=== PATIENT | female | born 1955 | race Caucasian/White ===

== ENCOUNTER → 2018-08-15 | Outpatient (CLI) | payer BC ==
[2015-08-24 15:17] VITALS: BP 143/83
[~2018-08-15] MED LIST: HYDR12.58 PO; HYDR1POW19 MC; LISI10TA2 PO
--- NOTE | 2018-08-16 14:58 | RAD ---
DATE: 08/15/2018 EXAM: DIGITAL SCREEN BILAT W/CAD HISTORY: Routine screening COMPARISON: None available, baseline study This study was interpreted with the benefit of Computerized Aided Detection (CAD). Breast Density: SCATTERED The breast parenchyma shows scattered fibroglandular densities. Breast parenchyma level B. FINDINGS: There is a 9 mm, smooth nodule in the posterolateral aspect of the right breast. It demonstrates a lucent notch compatible with a fatty hilum of a lymph node. Slightly larger, similar densities are present in both axillae. No spiculated mass or architectural distortion is seen. Minimal benign type calcification is present. No suspicious microcalcifications are evident. IMPRESSION: Probably benign right intramammary lymph node. In the absence of previous mammograms to document stability, follow-up right mammography in 6 months and bilateral mammography at one year is suggested. BI-RADS CATEGORY: 3 PROBABLY BENIGN FINDING(S)-SHORT INTERVAL FOLLOW-UP SUGGESTED RECOMMENDED FOLLOW-UP: 6M 6 MONTH FOLLOW-UP PQRS compliance statement: Patient information was entered into a reminder system with a target due date for the next mammogram. Mammography is a sensitive method for finding small breast cancers, but it does not detect them all and is not a substitute for careful clinical examination. A negative mammogram does not negate a clinically suspicious finding and should not result in delay in biopsying a clinically suspicious abnormality. "Our facility is accredited by the [employer] Mammography [employer]."
== END | disposition home or self-care (01) ==
LOC: MAMMO 13:55
DX: Z12.31 Encounter for screening mammogram for malignant neoplasm of breast (principal)
CPT/HCPCS: 77067

== ENCOUNTER 2018-09-20 19:06 | Emergency (ER) | payer BC ==
[~2018-09-20] VITALS: Ht 144.8 cm; Wt 65.8 kg
[2018-09-20 19:30] VITALS: BP 145/91
--- NOTE | 2018-09-20 21:08 | PHYS DOC ---
Past Medical History Past Medical History: Arthritis, Hypertension, Other Additional Past Medical Histor: back pain Past Surgical History: Appendectomy, Hysterectomy, Tonsillectomy, Other Additional Past Surgical Histo: Right knee repair-no knee cap Alcohol Use: None Drug Use: None Adult General Chief Complaint Chief Complaint: FINGER INJURY HPI HPI Patient is a 63 year old female presenting with a finger problem. She says that she was using her hands all day today she was using her hands all day today drawing various things She said about 1 hour ago her affected finger middle finger turned white she noticed a bruise at the base of the finger she had a little bit of numbness there is came to the ER for evaluation. Before I saw the patient apparently in the triage area the white finger resolved completely and she says it is back to normal now. Of note about 3 weeks ago she did bump her right forearm and she has a small skin nodule there now laterally. That does not really hurt though Review of Systems Review of Systems Patient is no recent fever she denies any shortness of breath never had this before Allergies Allergies Allergies Coded Allergies Type Severity Reaction Last Updated Verified Tetanus Vaccines and Toxoid Allergy Intermediate 08/23/15 Yes Physical Exam Physical Exam Constitutional: Well developed, well nourished, no acute distress, non-toxic appearance. [] HENT: Normocephalic, atraumatic, bilateral external ears normal, oropharynx moist, no oral exudates, nose normal. [] Eyes: PERRLA, EOMI, conjunctiva normal, no discharge. [] Neck: Normal range of motion, no tenderness, supple, no stridor. [] Cardiovascular:Heart rate regular rhythm, no murmur [] Lungs & Thorax: Bilateral breath sounds clear to auscultation [] Abdomen: Bowel sounds normal, soft, no tenderness, no masses, no pulsatile masses. [] Skin: Warm, dry, no erythema, no rash. [] Back: No tenderness, no CVA tenderness. [] Extremities: There is intact capillary refill intact sensation all 10 fingers are warm and well perfused there are no Janeway lesions there are no splinter hemorrhages of the fingernails. There is a small area of ecchymosis on the palmar aspect just below the middle finger of the hand is nontender no nodular FEELING to it. sensation is intact. tendon function intact. there is a small subq nodule lateral forearm of the arm. radial pulse is intact. Neurologic: Alert and oriented X 3, normal motor function, normal sensory function, no focal deficits noted. [] Psychologic: Affect normal, judgement normal, mood normal. [] Current Patient Data Vital Signs Vital Signs Date Time Temp Pulse Resp B/P (MAP) Pulse Ox O2 Delivery O2 Flow Rate FiO2 09/20/18 19:30 97.7 80 14 145/91 (109) 97 Room Air 97.7 EKG EKG [] Radiology/Procedures Radiology/Procedures [] Course & Med Decision Making Course & Med Decision Making Pertinent Labs and Imaging studies reviewed. (See chart for details) []Transient hypoperfusion of the finger now resolved query raynauds. Circulatory exam of the hand is normal capillary refill radial pulse etc. there is a small contusion and low palmar aspect of the hand could be potentially some sort of a mild trauma from overuse she was using her hand regularly today Recommended rest ice gradual return to activity this could be a raynauds no distal lesions no murmur doubt endocarditis or central etiolgoy Isaac Disclaimer Isaac Disclaimer This electronic medical record was generated, in whole or in part, using a voice recognition dictation system. Departure Departure Impression: Primary Impression: Ecchymosis Disposition: 01 HOME, SELF-CARE Condition: STABLE Patient Instructions: Contusion, [id number] JENNIFER RIZO MD Sep 20, 2018 21:08
== END 2018-09-20 20:16 | disposition home or self-care (01) ==
LOC: ER 19:06
DX: S60.221A Contusion of right hand, initial encounter (principal); M19.90 Unspecified osteoarthritis, unspecified site; I10 Essential (primary) hypertension; Z90.89 Acquired absence of other organs; Z90.710 Acquired absence of both cervix and uterus; Z88.7 Allergy status to serum and vaccine; X58.XXXA Exposure to other specified factors, initial encounter; Y93.89 Activity, other specified; Y92.89 Other specified places as the place of occurrence of the external cause; Y99.8 Other external cause status
CPT/HCPCS: 99281

== ENCOUNTER → 2019-02-12 | Outpatient (CLI) | payer BC ==
--- NOTE | 2019-02-12 13:06 | RAD ---
DATE: 02/12/2019 EXAM: DIGITAL DIAGNOSTIC RT HISTORY: Abnormal mammogram COMPARISON: 08/15/2018 mammogram This study was interpreted with the benefit of Computerized Aided Detection (CAD). Breast Density: SCATTERED The breast parenchyma shows scattered fibroglandular densities. Breast parenchyma level B. FINDINGS: No change in the right upper breast mass which may represent intramammary lymph node is identified. No suspicious calcification in the interval. No new mass on the mediolateral oblique view and spot compression images provided. IMPRESSION: Right upper-outer breast mass which has the appearance of an intramammary lymph node. Assessment for stability at the time of annual screening is recommended. BI-RADS CATEGORY: 3 PROBABLY BENIGN FINDING(S)-SHORT INTERVAL FOLLOW-UP SUGGESTED RECOMMENDED FOLLOW-UP: 6M 6 MONTH FOLLOW-UP PQRS compliance statement: Patient information was entered into a reminder system with a target due date in 6 months for the time of annual screening for the next mammogram. Mammography is a sensitive method for finding small breast cancers, but it does not detect them all and is not a substitute for careful clinical examination. A negative mammogram does not negate a clinically suspicious finding and should not result in delay in biopsying a clinically suspicious abnormality. "Our facility is accredited by the [employer] Mammography [employer]."
== END | disposition home or self-care (01) ==
LOC: MAMMO 12:23
PROVIDERS: ATTEND Registered Nurse
DX: N63.11 Unspecified lump in the right breast, upper outer quadrant (principal)
CPT/HCPCS: 77065

== ENCOUNTER → 2019-08-19 | Outpatient (CLI) | payer BC ==
--- NOTE | 2019-08-19 15:57 | RAD ---
Reason for Exam: 6 MONTH FOLLOW UP EXAM: DIGITAL DIAGNOSTIC BILATERAL. HISTORY: Right breast diagnostic with left breast screening mammograms. COMPARISON: February 12, 2019. This study was interpreted with the benefit of Computerized Aided Detection (CAD). FINDINGS: Breast Density: SCATTERED The breast parenchyma shows scattered fibroglandular densities. Breast parenchyma level B.. Right breast upper outer mass with central fat compatible with intramammary lymph node, unchanged compared to prior. No new suspicious microcalcification mass or architectural distortion. IMPRESSION: Right breast intramammary lymph node. BI-RADS CATEGORY: BI-RADS Category 2: Benign finding(s). RECOMMENDED FOLLOW-UP: 12M 12 MONTH FOLLOW-UP. PQRS compliance statement: Patient information was entered into a reminder system. Mammography is a sensitive method for finding small breast cancers, but it does not detect them all and is not a substitute for careful clinical examination. A negative mammogram does not negate a clinically suspicious finding and should not result in delay in biopsying a clinically suspicious abnormality. "Our facility is accredited by the [employer] Mammography [employer]." Dictated by: Dictated Date/Time: Signed by: CAMERON QUIROS Date/Time: 08/19/2019 1:55 PM LEANDRA
== END | disposition home or self-care (01) ==
LOC: MAMMO 12:35
PROVIDERS: ATTEND Registered Nurse
DX: R92.8 Other abnormal and inconclusive findings on diagnostic imaging of breast (principal)
CPT/HCPCS: 77066

== ENCOUNTER 2019-10-18 20:02 | Inpatient (IN) | payer BC ==
[~2019-10-18] VITALS: Ht 144.8 cm; Wt 68.2 kg
[2019-10-18 21:07] LABS: INFLUENZA A PATIENT NEGATIVE (NEGATIVE); INFLUENZA B PATIENT NEGATIVE (NEGATIVE)
[2019-10-18 23:48] LABS: BASO # 0.2 x10^3/uL (0.0-0.2); BASO % 1 % (0-3); EOS % 0 % (0-3); HEMATOCRIT 44.3 % (36.0-47.0); HEMOGLOBIN 14.8 g/dL (12.0-15.5); LYMPH # 0.5 x10^3/uL (1.0-4.8); LYMPH % 2 % (24-48); MEAN CORPUSCULAR HEMOGLOBIN 28 pg (25-35); MEAN CORPUSCULAR HGB CONC 33 g/dL (31-37); MEAN CORPUSCULAR VOLUME 83 fL (79-100); MONO # 1.3 x10^3/uL (0.0-1.1); MONO % 5 % (0-9); NEUT # 24.9 x10^3/uL (1.8-7.7); NEUT % 93 % (31-73); PLATELET COUNT 331 x10^3/uL (140-400); RED BLOOD COUNT 5.33 x10^6/uL (3.50-5.40); WHITE BLOOD COUNT 26.9 x10^3/uL (4.0-11.0)
[2019-10-19 00:04] LABS: ALBUMIN 3.2 g/dL (3.4-5.0); ALBUMIN/GLOBULIN RATIO 0.8 (1.0-1.7); CALCIUM 8.6 mg/dL (8.5-10.1); GFR 55.5; TOTAL BILIRUBIN 0.6 mg/dL (0.2-1.0); TOTAL PROTEIN 7.2 g/dL (6.4-8.2)
[2019-10-19 00:05] LABS: POTASSIUM 2.7 mmol/L (3.5-5.1)
--- NOTE | 2019-10-19 00:09 | PHYS DOC ---
Past Medical History Past Medical History: Arthritis, Hypertension, Other Additional Past Medical Histor: back pain (LETTY FRANKLIN APRN) Past Surgical History: Appendectomy, Hysterectomy, Tonsillectomy, Other Additional Past Surgical Histo: Right knee repair-no knee cap (LETTY FRANKLIN APRN) Alcohol Use: None Drug Use: None (LETTY FRANKLIN APRN) Attending Signature I have participated in the care of this patient and I have reviewed and agree with all pertinent clinical information above including history, exam, and recommendations. (GONZALEZ CHERRY MD) Adult General Chief Complaint Chief Complaint: FLU SYMPTOM HPI HPI Patient is a 64 year old female who presents with cough, malaise. Reports over the last 3 weeks she has been feeling ill, states she has been a little bit worse each day. States she had gone to her primary care provider is ago, had been started on Cefdinir, states over the last 24 hours she started to feel worse. Reports she has had a fever, cough, denies sore throat, denies any chest pain, denies dizziness. (LETTY FRANKLIN APRN) Review of Systems Review of Systems Constitutional: Reports fever, chills, malaise[] Eyes: Denies change in visual acuity, redness, or eye pain [] HENT: Reports nasal congestion, occasional sore throat.[] Respiratory: Reports cough, shortness of breath[] Cardiovascular: No additional information not addressed in HPI [] GI: Denies abdominal pain, nausea, vomiting, bloody stools or diarrhea [] : Denies dysuria or hematuria [] Musculoskeletal: Denies back pain or joint pain reports generalized body aches [] Integument: Denies rash or skin lesions [] Neurologic: Reports occasional headache denies focal weakness or sensory changes [] Endocrine: Denies polyuria or polydipsia [] All other systems were reviewed and found to be within normal limits, except as documented in this note. (LETTY FRANKLIN APRN) Current Medications Current Medications Current Medications Medications (Trade) Dose Ordered Sig/David Start Time Stop Time Status Last Admin Dose Admin Acetaminophen (Tylenol) 650 mg 1X ONCE 10/19/19 00:30 10/19/19 00:31 DC 10/19/19 00:56 650 MG Levofloxacin/ Dextrose 150 ml @ 100 mls/hr 1X ONCE 10/19/19 00:30 10/19/19 01:59 DC 10/19/19 01:01 100 MLS/HR Potassium Chloride (Klor-Con) 40 meq 1X ONCE 10/19/19 00:30 10/19/19 00:31 DC 10/19/19 00:56 40 MEQ Sodium Chloride 1,000 ml @ 1,000 mls/hr 1X ONCE 10/19/19 00:30 10/19/19 01:29 DC 10/19/19 01:02 1,000 MLS/HR (GONZALEZ CHERRY MD) Allergies Allergies Allergies Coded Allergies Type Severity Reaction Last Updated Verified Tetanus Vaccines and Toxoid Allergy Intermediate 08/23/15 Yes (GONZALEZ CHERRY MD) Physical Exam Physical Exam Constitutional: Well developed, well nourished, appears ill, appears uncomfortable. [] HENT: Normocephalic, atraumatic, bilateral external ears normal, oropharynx moist, no oral exudates, nose normal. [] Eyes: PERRLA, EOMI, conjunctiva normal, no discharge. [] Neck: Normal range of motion, no tenderness, supple, no stridor. [] Cardiovascular: Tachycardic, no murmur [] Lungs & Thorax: Bilateral breath sounds clear to auscultation occasional cough noted[] Abdomen: Bowel sounds normal, soft, no tenderness, no masses, no pulsatile masses. [] Skin: Warm, dry, no erythema, no rash. [] Back: No tenderness, no CVA tenderness. [] Extremities: No tenderness, no cyanosis, no clubbing, ROM intact, no edema. [] Neurologic: Alert and oriented X 3, normal motor function, normal sensory function, no focal deficits noted. [] Psychologic: Affect normal, judgement normal, mood normal. [] (LETTY FRANKLIN APRN) Current Patient Data Vital Signs Vital Signs Date Time Temp Pulse Resp B/P (MAP) Pulse Ox O2 Delivery O2 Flow Rate FiO2 10/18/19 20:37 100.1 110 20 115/74 (88) 97 Room Air 100.1 (GONZALEZ CHERRY MD) Lab Values Laboratory Tests Test 10/18/19 20:35 10/18/19 23:40 Influenza Type A Antigen Negative (NEGATIVE) Influenza Type B Antigen Negative (NEGATIVE) White Blood Count 26.9 x10^3/uL (4.0-11.0) H Red Blood Count 5.33 x10^6/uL (3.50-5.40) Hemoglobin 14.8 g/dL (12.0-15.5) Hematocrit 44.3 % (36.0-47.0) Mean Corpuscular Volume 83 fL (79-100) Mean Corpuscular Hemoglobin 28 pg (25-35) Mean Corpuscular Hemoglobin Concent 33 g/dL (31-37) Red Cell Distribution Width 14.0 % (11.5-14.5) Platelet Count 331 x10^3/uL (140-400) Neutrophils (%) (Auto) 93 % (31-73) H Lymphocytes (%) (Auto) 2 % (24-48) L Monocytes (%) (Auto) 5 % (0-9) Eosinophils (%) (Auto) 0 % (0-3) Basophils (%) (Auto) 1 % (0-3) Neutrophils # (Auto) 24.9 x10^3/uL (1.8-7.7) H Lymphocytes # (Auto) 0.5 x10^3/uL (1.0-4.8) L Monocytes # (Auto) 1.3 x10^3/uL (0.0-1.1) H Eosinophils # (Auto) 0.0 x10^3/uL (0.0-0.7) Basophils # (Auto) 0.2 x10^3/uL (0.0-0.2) Platelet Estimate Pending Sodium Level 125 mmol/L (136-145) L Potassium Level 2.7 mmol/L (3.5-5.1) *L Chloride Level 88 mmol/L (98-107) L Carbon Dioxide Level 28 mmol/L (21-32) Anion Gap 9 (6-14) Blood Urea Nitrogen 12 mg/dL (7-20) Creatinine 1.0 mg/dL (0.6-1.0) Estimated GFR (Cockcroft-Gault) 55.5 BUN/Creatinine Ratio 12 (6-20) Glucose Level 194 mg/dL (70-99) H Lactic Acid Level 3.5 mmol/L (0.4-2.0) H Calcium Level 8.6 mg/dL (8.5-10.1) Total Bilirubin 0.6 mg/dL (0.2-1.0) Aspartate Amino Transferase (AST) 14 U/L (15-37) L Alanine Aminotransferase (ALT) 17 U/L (14-59) Alkaline Phosphatase 100 U/L (46-116) Troponin I Quantitative < 0.017 ng/mL (0.000-0.055) Total Protein 7.2 g/dL (6.4-8.2) Albumin 3.2 g/dL (3.4-5.0) L Albumin/Globulin Ratio 0.8 (1.0-1.7) L Laboratory Tests 10/18/19 23:40 Laboratory Tests 10/18/19 23:40 (GONZALEZ CHERRY MD) EKG EKG [] (LETTY FRANKLIN APRN) Radiology/Procedures Radiology/Procedures Discussed with Dr Cherry, appears some haziness to left lower lobe consistent with mild pneumonia[] (LETTY FRANKLIN APRN) Course & Med Decision Making Course & Med Decision Making Pertinent Labs and Imaging studies reviewed. (See chart for details) [Reviewed imaging and lab work, patient does appear to not be improving after being on her feel tenderness, we'll change antibiotics, will plan for admission, will hydrate per sepsis protocol, the potassium to bring] within normal range.] Discussed admission with Dr Cherry, agrees to admission to hospitalist. Will treat per sepsis protocol, will change antibiotic from her PO Cefdinir to IV Le vaquin. Replace potassium with PO potassium at this time (LETTY FRANKLIN APRN) Dragon Disclaimer Dragon Disclaimer This electronic medical record was generated, in whole or in part, using a voice recognition dictation system. (LETTY FRANKLIN APRN) Departure Departure Impression: Primary Impression: Sepsis Additional Impression: Hypokalemia Disposition: ADMITTED INPATIENT Admitting Physician: [place] (LETTY FRANKLIN APRN) Condition: STABLE Referrals: KAY MENDOZA (PCP) Problem Qualifiers Primary Impression: Sepsis Sepsis type: sepsis due to unspecified organism Sepsis acute organ dysfunction status: without acute organ dysfunction Qualified Codes: A41.9 - Sepsis, unspecified organism LETTY FRANKLIN APRN Oct 19, 2019 00:09 GONZALEZ CHERRY MD Oct 19, 2019 02:40
[2019-10-19] MEDS ORDERED: ACETAMINOPHEN 325 MG TABLET. PO ONE (00:30)
[2019-10-19] MEDS ORDERED: IV NORMAL SALINE 1000ML BAG 1,000 ML IV ONE ×2 (00:30)
[2019-10-19] MEDS ORDERED: POTASSIUM CHLORIDE 20 MEQ TABLET.ER. PO ONE ×2 (00:30→11:30)
[2019-10-19] MEDS ORDERED: ONDANSETRON PF 4 MG/2 ML VIAL. IV PRN (01:15)
[2019-10-19] MEDS ORDERED: ACETAMINOPHEN 325 MG TABLET. PO PRN (01:15)
[2019-10-19] MEDS ORDERED: MORPHINE SULFATE 2 MG/ML VIAL. IV PRN (01:15)
[2019-10-19] MEDS: IPRATRPIUM/ALBUTEROL 0.5/2.5MG 3 ML NEBU. NEB SCH ×5 (01:16→21:49)
[2019-10-19 02:14] LABS: BILIRUBIN,URINE NEGATIVE (NEG); CLARITY,URINE CLOUDY; COLOR,URINE YELLOW; NITRITE,URINE NEGATIVE (NEG); PH,URINE 5.5; PROTEIN,URINE NEGATIVE (NEG-TRACE); UROBILINOGEN,URINE 0.2 mg/dL (0.2 mg/dL)
[2019-10-19 02:19] LABS: BACTERIA,URINE 0 /HPF (0-FEW); RBC,URINE 0 /HPF (0-2); SQUAMOUS EPITHELIAL CELL,UR MOD /LPF; WBC,URINE OCC /HPF (0-4)
[2019-10-19 02:30] VITALS: BP 161/84
[2019-10-19] MEDS ORDERED: LISI1TAB20 PO (02:35)
[2019-10-19] MEDS ORDERED: LEVO75TA5 PO (02:35)
[2019-10-19] MEDS ORDERED: CEFD300C PO (02:35)
[2019-10-19] MEDS: IV NORMAL SALINE 1000ML BAG 1,000 ML IV SCH ×3 (02:36→11:15)
[2019-10-19 04:03] LABS: % BANDS 5 % (0-9); % LYMPHS 2 % (24-48); % MONOS 2 % (0-10); % SEGS 91 % (35-66); PLT ESTIMATE ADEQUATE (ADEQUATE)
--- NOTE | 2019-10-19 04:21 | RAD ---
Exam: Chest one view INDICATION: Fever TECHNIQUE: Frontal view of the chest Comparisons: None FINDINGS: The cardiomediastinal silhouette and pulmonary vessels are within normal limits. The lung and pleural spaces are clear. IMPRESSION: No acute cardiopulmonary process. Electronically signed by: Whitney Antunez MD (10/19/2019 4:18 AM) [id number]
[2019-10-19 07:00] VITALS: BP 128/80
--- NOTE | 2019-10-19 08:00 | PDOC1 ---
History and Physical Date of Admission Date of Admission DATE: 10/19/19 TIME: 07:59 Identification/Chief Complaint Chief Complaint Weakness Source Source: Patient History of Present Illness History of Present Illness Ms Burch is a 64 year old female w/ PMHx OA, HTN, back pain who presents with cough, malaise. Reports over the last 3 weeks she has been feeling ill, states she has been a little bit worse each day. States she had gone to her primary care provider is ago, had been started on Cefdinir, states over the last 24 hours she started to feel worse. Reports she has had a fever, cough, denies sore throat, denies any chest pain, denies dizziness. Labs significant for WBC 26.9, Na 125, K 2.7, Glucose 194, Lactate 3.5. CXR with possible left lower lobe haziness. Started on empiric levaquin, changed from cefdinir, admitted for further care. Past Medical History Cardiovascular: HTN Pulmonary: No pertinent hx CENTRAL NERVOUS SYSTEM: Other GI: No pertinent hx Heme/Onc: No pertinent hx Hepatobiliary: No pertinent hx Psych: No pertinent hx Musculoskeletal: Osteoarthritis Rheumatologic: No pertinent hx Infectious disease: No pertinent hx Renal/: No pertinent hx Endocrine: No pertinent hx Past Surgical History Past Surgical History Appendectomy, Hysterectomy, Tonsillectomy, Right knee repair-no knee cap Past Surgical History: Appendectomy, Arthroscopy, Tonsillectomy Family History Family History: Coronary Artery Disease Social History Smoke: No ALCOHOL: none Drugs: None Current Medications Current Medications Current Medications Potassium Chloride (Klor-Con) 40 meq 1X ONCE PO Last administered on 10/19/19at 00:56; Start 10/19/19 at 00:30; Stop 10/19/19 at 00:31; Status DC Sodium Chloride 1,000 ml @ 1,000 mls/hr 1X ONCE IV Last administered on 10/19/19at 00:58; Start 10/19/19 at 00:30; Stop 10/19/19 at 01:29; Status DC Levofloxacin/ Dextrose 150 ml @ 100 mls/hr 1X ONCE IV Last administered on 10/19/19at 01:01; Start 10/19/19 at 00:30; Stop 10/19/19 at 01:59; Status DC Acetaminophen (Tylenol) 650 mg 1X ONCE PO Last administered on 10/19/19at 00:56; Start 10/19/19 at 00:30; Stop 10/19/19 at 00:31; Status DC Sodium Chloride 1,000 ml @ 1,000 mls/hr 1X ONCE IV Last administered on 10/19/19at 01:02; Start 10/19/19 at 00:30; Stop 10/19/19 at 01:29; Status DC Ondansetron HCl (Zofran) 4 mg PRN Q8HRS PRN IV NAUSEA/VOMITING; Start 10/19/19 at 01:15; Stop 10/20/19 at 01:14 Morphine Sulfate (Morphine Sulfate) 2 mg PRN Q2HR PRN IV PAIN; Start 10/19/19 at 01:15; Stop 10/20/19 at 01:14 Sodium Chloride 1,000 ml @ 200 mls/hr Q5H IV Last administered on 10/19/19at 06:15; Start 10/19/19 at 01:15; Stop 10/20/19 at 01:14 Acetaminophen (Tylenol) 650 mg PRN Q4HRS PRN PO FEVER; Start 10/19/19 at 01:15; Stop 10/20/19 at 01:14 Albuterol/ Ipratropium (Duoneb) 3 ml RTQID NEB Last administered on 10/19/19at 01:16; Start 10/19/19 at 08:00; Stop 10/20/19 at 07:59 Active Scripts Active Reported Cefdinir 300 Mg Capsule 1 Cap PO BID Levothyroxine Sodium 75 Mcg Tablet 1 Tab PO DAILY Lisinopril-Hctz 20-25 Mg Tab (Lisinopril/Hydrochlorothiazide) 1 Each Tablet 1 Tab PO DAILY Allergies Allergies: Coded Allergies: Tetanus Vaccines and Toxoid (Verified Allergy, Intermediate, 08/23/15) PATIENT RPTS INTERACTION ROS General: YES: Chills, Fatigue, Malaise; No: Night Sweats, Appetite, Other PSYCHOLOGICAL ROS: No: Anxiety, Behavioral Disorder, Concentration difficultie, Decreased libido, Depression, Disorientation, Hallucinations, Hostility, Irritablity, Memory difficulties, Mood Swings, Obsessive thoughts, Physical abuse, Sexual abuse, Sleep disturbances, Suicidal ideation, Other Eyes: No Blurry vision, No Decreased vision, No Double vision, No Dry eyes, No Excessive tearing, No Eye Pain, No Itchy Eyes, No Loss of vision, No Photophobia, No Scotomata, No Uses contacts, No Uses glasses, No Other HEENT: No: Heacaches, Visual Changes, Hearing change, Nasal congestion, Nasal discharge, Oral lesions, Sinus pain, Sore Throat, Epistaxis, Sneezing, Snoring, Tinnitus, Vertigo, Vocal changes, Other ALLERGY AND IMMUNOLOGY: No: Hives, Insect Bite Sensitivity, Itchy/Watery Eyes, Nasal Congestion, Post Nasal Drip, Seasonal Allergies, Other Hematological and Lymphatic: No: Bleeding Problems, Blood Clots, Blood Transfusions, Brusing, Night Sweats, Pallor, Swollen Lymph Nodes, Other ENDOCRINE: No: Breast Changes, Galactorrhea, Hair Pattern Changes, Hot Flashes, Malaise/lethargy, Mood Swings, Palpitations, Polydipsia/polyuria, Skin Changes, Temperature Intolerance, Unexpected Weight Changes, Other Breast: No New/Changing Breast Lumps, No Nipple changes, No Nipple discharge, No Other Respiratory: YES: Cough, Shortness of breath, SOB with excertion; No: Hemoptysis, Orthopnea, Pleuritic Pain, Sputum Changes, Stridor, Tachypnea, Wheezing, Other Cardiovascular: No Chest Pain, No Palpitations, No Orthopnea, No Paroxysmal Noc. Dyspnea, No Edema, No Lt Headedness, No Other Gastrointestinal: Yes Nausea; No Vomiting, No Abdominal Pain, No Diarrhea, No Constipation, No Melena, No Hematochezia, No Other Genitourinary: No Dysuria, No Frequency, No Incontinence, No Hematuria, No Retention, No Discharge, No Urgency, No Pain, No Flank Pain, No Other, No , No , No , No , No , No , No Musculoskeletal: Yes Gait Disturbance, Yes Muscular Weakness; No Joint Pain, No Joint Stiffness, No Joint Swelling, No Muscle Pain, No Pain In:, No Swelling In:, No Other Neurological: Yes Gait Disturbance; No Behavorial Changes, No Bowel/Bladder ControlChng, No Confusion, No D izziness, No Headaches, No Impaired Coord/balance, No Memory Loss, No Numbness/Tingling, No Seizures, No Speech Problems, No Tremors, No Visual Changes, No Weakness, No Other Skin: No Dry Skin, No Eczema, No Hair Changes, No Lumps, No Mole Changes, No Mottling, No Nail Changes, No Pruritus, No Rash, No Skin Lesion Changes, No Other, No Acne Physical Exam General: Alert, Oriented X3, Cooperative, No acute distress HEENT: Atraumatic, PERRLA, EOMI, Mucous membr. moist/pink Lungs: Other (Left sided rhonchi) Heart: S1S2, RRR, no thrills, no rubs Abdomen: Normal bowel sounds, Soft, No tenderness, No hepatosplenomegaly, No masses Extremities: No clubbing, No cyanosis, No edema, Normal pulses, No tenderness/swelling Skin: No rashes, No breakdown, No significant lesion Neuro: Normal speech, Strength at 5/5 X4 ext, Normal tone, Sensation intact, Cranial nerves 3-12 NL, Reflexes 2+ Psych/Mental Status: Mental status NL, Mood NL Vitals Vitals Vital Signs Date Time Temp Pulse Resp B/P (MAP) Pulse Ox O2 Delivery O2 Flow Rate FiO2 10/19/19 02:30 98.3 95 18 161/84 (109) 95 Room Air 98.3 Labs Labs Laboratory Tests Test 10/18/19 20:35 10/18/19 23:40 10/19/19 02:07 10/19/19 02:45 Influenza Type A Antigen Negative (NEGATIVE) Influenza Type B Antigen Negative (NEGATIVE) White Blood Count 26.9 x10^3/uL (4.0-11.0) Red Blood Count 5.33 x10^6/uL (3.50-5.40) Hemoglobin 14.8 g/dL (12.0-15.5) Hematocrit 44.3 % (36.0-47.0) Mean Corpuscular Volume 83 fL (79-100) Mean Corpuscular Hemoglobin 28 pg (25-35) Mean Corpuscular Hemoglobin Concent 33 g/dL (31-37) Red Cell Distribution Width 14.0 % (11.5-14.5) Platelet Count 331 x10^3/uL (140-400) Neutrophils (%) (Auto) 93 % (31-73) Lymphocytes (%) (Auto) 2 % (24-48) Monocytes (%) (Auto) 5 % (0-9) Eosinophils (%) (Auto) 0 % (0-3) Basophils (%) (Auto) 1 % (0-3) Neutrophils # (Auto) 24.9 x10^3/uL (1.8-7.7) Lymphocytes # (Auto) 0.5 x10^3/uL (1.0-4.8) Monocytes # (Auto) 1.3 x10^3/uL (0.0-1.1) Eosinophils # (Auto) 0.0 x10^3/uL (0.0-0.7) Basophils # (Auto) 0.2 x10^3/uL (0.0-0.2) Segmented Neutrophils % 91 % (35-66) Band Neutrophils % 5 % (0-9) Lymphocytes % 2 % (24-48) Monocytes % 2 % (0-10) Platelet Estimate Adequate (ADEQUATE) Sodium Level 125 mmol/L (136-145) Potassium Level 2.7 mmol/L (3.5-5.1) Chloride Level 88 mmol/L (98-107) Carbon Dioxide Level 28 mmol/L (21-32) Anion Gap 9 (6-14) Blood Urea Nitrogen 12 mg/dL (7-20) Creatinine 1.0 mg/dL (0.6-1.0) Estimated GFR (Cockcroft-Gault) 55.5 BUN/Creatinine Ratio 12 (6-20) Glucose Level 194 mg/dL (70-99) Lactic Acid Level 3.5 mmol/L (0.4-2.0) 3.2 mmol/L (0.4-2.0) Calcium Level 8.6 mg/dL (8.5-10.1) Total Bilirubin 0.6 mg/dL (0.2-1.0) Aspartate Amino Transf (AST/SGOT) 14 U/L (15-37) Alanine Aminotransferase (ALT/SGPT) 17 U/L (14-59) Alkaline Phosphatase 100 U/L (46-116) Troponin I Quantitative < 0.017 ng/mL (0.000-0.055) Total Protein 7.2 g/dL (6.4-8.2) Albumin 3.2 g/dL (3.4-5.0) Albumin/Globulin Ratio 0.8 (1.0-1.7) Urine Collection Type Unknown Urine Color Yellow Urine Clarity Cloudy Urine pH 5.5 Urine Specific [place] 1.010 Urine Protein Negative mg/dL (NEG-TRACE) Urine Glucose (UA) 100 mg/dL (NEG) Urine Ketones (Stick) Negative mg/dL (NEG) Urine Blood Negative (NEG) Urine Nitrite Negative (NEG) Urine Bilirubin Negative (NEG) Urine Urobilinogen Dipstick 0.2 mg/dL (0.2 mg/dL) Urine Leukocyte Esterase Negative (NEG) Urine RBC 0 /HPF (0-2) Urine WBC Occ /HPF (0-4) Urine Squamous Epithelial Cells Mod /LPF Urine Bacteria 0 /HPF (0-FEW) Urine Mucus Slight /LPF Laboratory Tests Test 10/18/19 20:35 10/18/19 23:40 10/19/19 02:07 10/19/19 02:45 Influenza Type A Antigen Negative (NEGATIVE) Influenza Type B Antigen Negative (NEGATIVE) White Blood Count 26.9 x10^3/uL (4.0-11.0) Red Blood Count 5.33 x10^6/uL (3.50-5.40) Hemoglobin 14.8 g/dL (12.0-15.5) Hematocrit 44.3 % (36.0-47.0) Mean Corpuscular Volume 83 fL (79-100) Mean Corpuscular Hemoglobin 28 pg (25-35) Mean Corpuscular Hemoglobin Concent 33 g/dL (31-37) Red Cell Distribution Width 14.0 % (11.5-14.5) Platelet Count 331 x10^3/uL (140-400) Neutrophils (%) (Auto) 93 % (31-73) Lymphocytes (%) (Auto) 2 % (24-48) Monocytes (%) (Auto) 5 % (0-9) Eosinophils (%) (Auto) 0 % (0-3) Basophils (%) (Auto) 1 % (0-3) Neutrophils # (Auto) 24.9 x10^3/uL (1.8-7.7) Lymphocytes # (Auto) 0.5 x10^3/uL (1.0-4.8) Monocytes # (Auto) 1.3 x10^3/uL (0.0-1.1) Eosinophils # (Auto) 0.0 x10^3/uL (0.0-0.7) Basophils # (Auto) 0.2 x10^3/uL (0.0-0.2) Segmented Neutrophils % 91 % (35-66) Band Neutrophils % 5 % (0-9) Lymphocytes % 2 % (24-48) Monocytes % 2 % (0-10) Platelet Estimate Adequate (ADEQUATE) Sodium Level 125 mmol/L (136-145) Potassium Level 2.7 mmol/L (3.5-5.1) Chloride Level 88 mmol/L (98-107) Carbon Dioxide Level 28 mmol/L (21-32) Anion Gap 9 (6-14) Blood Urea Nitrogen 12 mg/dL (7-20) Creatinine 1.0 mg/dL (0.6-1.0) Estimated GFR (Cockcroft-Gault) 55.5 BUN/Creatinine Ratio 12 (6-20) Glucose Level 194 mg/dL (70-99) Lactic Acid Level 3.5 mmol/L (0.4-2.0) 3.2 mmol/L (0.4-2.0) Calcium Level 8.6 mg/dL (8.5-10.1) Total Bilirubin 0.6 mg/dL (0.2-1.0) Aspartate Amino Transf (AST/SGOT) 14 U/L (15-37) Alanine Aminotransferase (ALT/SGPT) 17 U/L (14-59) Alkaline Phosphatase 100 U/L (46-116) Troponin I Quantitative < 0.017 ng/mL (0.000-0.055) Total Protein 7.2 g/dL (6.4-8.2) Albumin 3.2 g/dL (3.4-5.0) Albumin/Globulin Ratio 0.8 (1.0-1.7) Urine Collection Type Unknown Urine Color Yellow Urine Clarity Cloudy Urine pH 5.5 Urine Specific [place] 1.010 Urine Protein Negative mg/dL (NEG-TRACE) Urine Glucose (UA) 100 mg/dL (NEG) Urine Ketones (Stick) Negative mg/dL (NEG) Urine Blood Negative (NEG) Urine Nitrite Negative (NEG) Urine Bilirubin Negative (NEG) Urine Urobilinogen Dipstick 0.2 mg/dL (0.2 mg/dL) Urine Leukocyte Esterase Negative (NEG) Urine RBC 0 /HPF (0-2) Urine WBC Occ /HPF (0-4) Urine Squamous Epithelial Cells Mod /LPF Urine Bacteria 0 /HPF (0-FEW) Urine Mucus Slight /LPF VTE Prophylaxis Ordered VTE Prophylaxis Devices: Yes VTE Pharmacological Prophylaxi: Yes Assessment/Plan Assessment/Plan A/P: Cough - sinusitis + bronchitis vs pneumonia failed outpatient antibiotic therapy on cefdinir, will cont levaquin now. Sepsis - 2/2 above infection. Given fluids, trend lactate, given empiric antibiotics. Negative for inluenza Hypokalemia - with hypomagnesemia - likely from acute illness and concomitant diuretic use. Will hold thiazide Lactic acidosis - 2/2 sepsis. Will trend OA - tylenol for pain HTN - hold thiazide, continue lisinopril Hypothyroidism - cont levothyroxine Weakness - likely related to infection, eletrolytes, will have PT to see FEN - General diet PPX - lovenox FULL CODE Dispo - inpatient likely 2 midnights. GARCIA MANCERA MD Oct 19, 2019 08:00
[2019-10-19 09:23] LABS: BASO % 0 % (0-3); EOS % 0 % (0-3); HEMATOCRIT 38.2 % (36.0-47.0); HEMOGLOBIN 12.9 g/dL (12.0-15.5); LYMPH # 0.6 x10^3/uL (1.0-4.8); LYMPH % 3 % (24-48); MEAN CORPUSCULAR HEMOGLOBIN 28 pg (25-35); MEAN CORPUSCULAR HGB CONC 34 g/dL (31-37); MEAN CORPUSCULAR VOLUME 84 fL (79-100); MONO # 1.5 x10^3/uL (0.0-1.1); MONO % 7 % (0-9); NEUT # 20.3 x10^3/uL (1.8-7.7); NEUT % 91 % (31-73); PLATELET COUNT 279 x10^3/uL (140-400); RED BLOOD COUNT 4.56 x10^6/uL (3.50-5.40); RED CELL DISTRIBUTION WIDTH 13.8 % (11.5-14.5); WHITE BLOOD COUNT 22.4 x10^3/uL (4.0-11.0)
[2019-10-19 09:35] LABS: CALCIUM 7.1 mg/dL (8.5-10.1); CREATININE 0.7 mg/dL (0.6-1.0); GFR 83.7; POTASSIUM 3.1 mmol/L (3.5-5.1)
[2019-10-19 11:00] VITALS: BP 156/86
[2019-10-19 15:00] VITALS: BP 163/87
[2019-10-19 19:57] VITALS: BP 171/87
[2019-10-19] MEDS ORDERED: MAGNESIUM SULFATE 4GM 100 ML IV ONE (22:15)
[2019-10-20] VITALS (7 sets, daily range): BP systolic 139–230; BP diastolic 82–127
[2019-10-20 05:06] LABS: BASO # 0.1 x10^3/uL (0.0-0.2); BASO % 1 % (0-3); EOS % 0 % (0-3); HEMATOCRIT 37.5 % (36.0-47.0); HEMOGLOBIN 12.6 g/dL (12.0-15.5); LYMPH # 1.5 x10^3/uL (1.0-4.8); LYMPH % 12 % (24-48); MEAN CORPUSCULAR HEMOGLOBIN 28 pg (25-35); MEAN CORPUSCULAR HGB CONC 34 g/dL (31-37); MEAN CORPUSCULAR VOLUME 84 fL (79-100); MONO # 0.6 x10^3/uL (0.0-1.1); MONO % 5 % (0-9); NEUT # 9.9 x10^3/uL (1.8-7.7); NEUT % 82 % (31-73); PLATELET COUNT 272 x10^3/uL (140-400); RED BLOOD COUNT 4.48 x10^6/uL (3.50-5.40); RED CELL DISTRIBUTION WIDTH 13.8 % (11.5-14.5)
[2019-10-20] MEDS: LEVOTHYROXINE 75 MCG TABLET PO SCH (05:26)
[2019-10-20 05:37] LABS: CALCIUM 7.9 mg/dL (8.5-10.1); CREATININE 0.7 mg/dL (0.6-1.0); GFR 83.7
[2019-10-20 05:40] LABS: POTASSIUM 2.9 mmol/L (3.5-5.1)
[2019-10-20] MEDS ORDERED: POTASSIUM CHLORIDE 20 MEQ TABLET.ER. PO ONE (06:30)
[2019-10-20] MEDS: POTASSIUM CHLORIDE 10MEQ 100 ML IV SCH ×4 (06:31→09:32)
[2019-10-20] MEDS: IPRATRPIUM/ALBUTEROL 0.5/2.5MG 3 ML NEBU. NEB SCH (08:12)
[2019-10-20] MEDS: LISINOPRIL 20 MG TABLET PO SCH (08:54)
[2019-10-20] MEDS ORDERED: NON FORMULARY ITEM (Lisinopril/Hydrochlorothiazide (Lisinopril-Hctz 20-25 Mg Tab) 1 TAB) PO SCH (09:00)
[2019-10-20] MEDS ORDERED: hydroCHLOROthiazide 25 MG TABLET PO SCH (09:00)
--- NOTE | 2019-10-20 09:23 | PDOC ---
PROGRESS NOTES Chief Complaint Chief Complaint A/P: Cough - sinusitis + bronchitis vs pneumonia failed outpatient antibiotic therapy on cefdinir, will cont levaquin now. Sepsis - 2/2 above infection. Given fluids, trend lactate, given empiric antibiotics. Negative for inluenza Hypokalemia - with hypomagnesemia - likely from acute illness and concomitant diuretic use. Will hold thiazide Lactic acidosis - 2/2 sepsis. Will trend OA - tylenol for pain HTN - hold thiazide, continue lisinopril Hypothyroidism - cont levothyroxine Weakness - likely related to infection, eletrolytes, will have PT to see FEN - General diet PPX - lovenox FULL CODE Dispo - inpatient likely 2 midnights. History of Present Illness History of Present Illness Ms Burch is a 64 year old female w/ PMHx OA, HTN, back pain who presents with cough, malaise. Reports over the last 3 weeks she has been feeling ill, states she has been a little bit worse each day. States she had gone to her primary care provider is ago, had been started on Cefdinir, states over the last 24 hours she started to feel worse. Reports she has had a fever, cough, denies sore throat, denies any chest pain, denies dizziness. Labs significant for WBC 26.9, Na 125, K 2.7, Glucose 194, Lactate 3.5. CXR with possible left lower lobe haziness. Started on empiric levaquin, changed from cefdinir, admitted for further care. C/O headache. BP this morning 230/127. K 2.9. Mg 1.3. Held HCTZ. BP jumped when she was getting potassium replaced. Still with loose BM, sent for c. diff. Vitals Vitals Vital Signs Date Time Temp Pulse Resp B/P (MAP) Pulse Ox O2 Delivery O2 Flow Rate FiO2 10/20/19 08:54 66 230/127 10/20/19 08:13 98 Room Air 10/20/19 07:00 98.3 16 98.3 Physical Exam General: Alert, Oriented X3, Cooperative, No acute distress Abdomen: Normal bowel sounds, Soft, No tenderness, No hepatosplenomegaly, No masses Extremities: No clubbing, No cyanosis, No edema, Normal pulses, No tenderness/swelling Skin: No rashes, No breakdown, No significant lesion Labs LABS Laboratory Tests Test 10/20/19 04:45 White Blood Count 12.0 x10^3/uL (4.0-11.0) Red Blood Count 4.48 x10^6/uL (3.50-5.40) Hemoglobin 12.6 g/dL (12.0-15.5) Hematocrit 37.5 % (36.0-47.0) Mean Corpuscular Volume 84 fL (79-100) Mean Corpuscular Hemoglobin 28 pg (25-35) Mean Corpuscular Hemoglobin Concent 34 g/dL (31-37) Red Cell Distribution Width 13.8 % (11.5-14.5) Platelet Count 272 x10^3/uL (140-400) Neutrophils (%) (Auto) 82 % (31-73) Lymphocytes (%) (Auto) 12 % (24-48) Monocytes (%) (Auto) 5 % (0-9) Eosinophils (%) (Auto) 0 % (0-3) Basophils (%) (Auto) 1 % (0-3) Neutrophils # (Auto) 9.9 x10^3/uL (1.8-7.7) Lymphocytes # (Auto) 1.5 x10^3/uL (1.0-4.8) Monocytes # (Auto) 0.6 x10^3/uL (0.0-1.1) Eosinophils # (Auto) 0.0 x10^3/uL (0.0-0.7) Basophils # (Auto) 0.1 x10^3/uL (0.0-0.2) Sodium Level 135 mmol/L (136-145) Potassium Level 2.9 mmol/L (3.5-5.1) Chloride Level 100 mmol/L (98-107) Carbon Dioxide Level 29 mmol/L (21-32) Anion Gap 6 (6-14) Blood Urea Nitrogen 5 mg/dL (7-20) Creatinine 0.7 mg/dL (0.6-1.0) Estimated GFR (Cockcroft-Gault) 83.7 Glucose Level 106 mg/dL (70-99) Calcium Level 7.9 mg/dL (8.5-10.1) Comment Review of Relevant I have reviewed the following items jada (where applicable) has been applied. Labs Laboratory Tests Test 10/18/19 20:35 10/18/19 23:40 10/19/19 02:07 10/19/19 02:45 Influenza Type A Antigen Negative (NEGATIVE) Influenza Type B Antigen Negative (NEGATIVE) White Blood Count 26.9 x10^3/uL (4.0-11.0) Red Blood Count 5.33 x10^6/uL (3.50-5.40) Hemoglobin 14.8 g/dL (12.0-15.5) Hematocrit 44.3 % (36.0-47.0) Mean Corpuscular Volume 83 fL (79-100) Mean Corpuscular Hemoglobin 28 pg (25-35) Mean Corpuscular Hemoglobin Concent 33 g/dL (31-37) Red Cell Distribution Width 14.0 % (11.5-14.5) Platelet Count 331 x10^3/uL (140-400) Neutrophils (%) (Auto) 93 % (31-73) Lymphocytes (%) (Auto) 2 % (24-48) Monocytes (%) (Auto) 5 % (0-9) Eosinophils (%) (Auto) 0 % (0-3) Basophils (%) (Auto) 1 % (0-3) Neutrophils # (Auto) 24.9 x10^3/uL (1.8-7.7) Lymphocytes # (Auto) 0.5 x10^3/uL (1.0-4.8) Monocytes # (Auto) 1.3 x10^3/uL (0.0-1.1) Eosinophils # (Auto) 0.0 x10^3/uL (0.0-0.7) Basophils # (Auto) 0.2 x10^3/uL (0.0-0.2) Segmented Neutrophils % 91 % (35-66) Band Neutrophils % 5 % (0-9) Lymphocytes % 2 % (24-48) Monocytes % 2 % (0-10) Platelet Estimate Adequate (ADEQUATE) Sodium Level 125 mmol/L (136-145) Potassium Level 2.7 mmol/L (3.5-5.1) Chloride Level 88 mmol/L (98-107) Carbon Dioxide Level 28 mmol/L (21-32) Anion Gap 9 (6-14) Blood Urea Nitrogen 12 mg/dL (7-20) Creatinine 1.0 mg/dL (0.6-1.0) Estimated GFR (Cockcroft-Gault) 55.5 BUN/Creatinine Ratio 12 (6-20) Glucose Level 194 mg/dL (70-99) Lactic Acid Level 3.5 mmol/L (0.4-2.0) 3.2 mmol/L (0.4-2.0) Calcium Level 8.6 mg/dL (8.5-10.1) Total Bilirubin 0.6 mg/dL (0.2-1.0) Aspartate Amino Transf (AST/SGOT) 14 U/L (15-37) Alanine Aminotransferase (ALT/SGPT) 17 U/L (14-59) Alkaline Phosphatase 100 U/L (46-116) Troponin I Quantitative < 0.017 ng/mL (0.000-0.055) Total Protein 7.2 g/dL (6.4-8.2) Albumin 3.2 g/dL (3.4-5.0) Albumin/Globulin Ratio 0.8 (1.0-1.7) Urine Collection Type Unknown Urine Color Yellow Urine Clarity Cloudy Urine pH 5.5 Urine Specific [place] 1.010 Urine Protein Negative mg/dL (NEG-TRACE) Urine Glucose (UA) 100 mg/dL (NEG) Urine Ketones (Stick) Negative mg/dL (NEG) Urine Blood Negative (NEG) Urine Nitrite Negative (NEG) Urine Bilirubin Negative (NEG) Urine Urobilinogen Dipstick 0.2 mg/dL (0.2 mg/dL) Urine Leukocyte Esterase Negative (NEG) Urine RBC 0 /HPF (0-2) Urine WBC Occ /HPF (0-4) Urine Squamous Epithelial Cells Mod /LPF Urine Bacteria 0 /HPF (0-FEW) Urine Mucus Slight /LPF Test 10/19/19 09:00 10/20/19 04:45 White Blood Count 22.4 x10^3/uL (4.0-11.0) 12.0 x10^3/uL (4.0-11.0) Red Blood Count 4.56 x10^6/uL (3.50-5.40) 4.48 x10^6/uL (3.50-5.40) Hemoglobin 12.9 g/dL (12.0-15.5) 12.6 g/dL (12.0-15.5) Hematocrit 38.2 % (36.0-47.0) 37.5 % (36.0-47.0) Mean Corpuscular Volume 84 fL (79-100) 84 fL (79-100) Mean Corpuscular Hemoglobin 28 pg (25-35) 28 pg (25-35) Mean Corpuscular Hemoglobin Concent 34 g/dL (31-37) 34 g/dL (31-37) Red Cell Distribution Width 13.8 % (11.5-14.5) 13.8 % (11.5-14.5) Platelet Count 279 x10^3/uL (140-400) 272 x10^3/uL (140-400) Neutrophils (%) (Auto) 91 % (31-73) 82 % (31-73) Lymphocytes (%) (Auto) 3 % (24-48) 12 % (24-48) Monocytes (%) (Auto) 7 % (0-9) 5 % (0-9) Eosinophils (%) (Auto) 0 % (0-3) 0 % (0-3) Basophils (%) (Auto) 0 % (0-3) 1 % (0-3) Neutrophils # (Auto) 20.3 x10^3/uL (1.8-7.7) 9.9 x10^3/uL (1.8-7.7) Lymphocytes # (Auto) 0.6 x10^3/uL (1.0-4.8) 1.5 x10^3/uL (1.0-4.8) Monocytes # (Auto) 1.5 x10^3/uL (0.0-1.1) 0.6 x10^3/uL (0.0-1.1) Eosinophils # (Auto) 0.0 x10^3/uL (0.0-0.7) 0.0 x10^3/uL (0.0-0.7) Basophils # (Auto) 0.0 x10^3/uL (0.0-0.2) 0.1 x10^3/uL (0.0-0.2) Sodium Level 135 mmol/L (136-145) 135 mmol/L (136-145) Potassium Level 3.1 mmol/L (3.5-5.1) 2.9 mmol/L (3.5-5.1) Chloride Level 98 mmol/L (98-107) 100 mmol/L (98-107) Carbon Dioxide Level 27 mmol/L (21-32) 29 mmol/L (21-32) Anion Gap 10 (6-14) 6 (6-14) Blood Urea Nitrogen 7 mg/dL (7-20) 5 mg/dL (7-20) Creatinine 0.7 mg/dL (0.6-1.0) 0.7 mg/dL (0.6-1.0) Estimated GFR (Cockcroft-Gault) 83.7 83.7 Glucose Level 137 mg/dL (70-99) 106 mg/dL (70-99) Calcium Level 7.1 mg/dL (8.5-10.1) 7.9 mg/dL (8.5-10.1) Magnesium Level 1.3 mg/dL (1.8-2.4) Laboratory Tests Test 10/20/19 04:45 White Blood Count 12.0 x10^3/uL (4.0-11.0) Red Blood Count 4.48 x10^6/uL (3.50-5.40) Hemoglobin 12.6 g/dL (12.0-15.5) Hematocrit 37.5 % (36.0-47.0) Mean Corpuscular Volume 84 fL (79-100) Mean Corpuscular Hemoglobin 28 pg (25-35) Mean Corpuscular Hemoglobin Concent 34 g/dL (31-37) Red Cell Distribution Width 13.8 % (11.5-14.5) Platelet Count 272 x10^3/uL (140-400) Neutrophils (%) (Auto) 82 % (31-73) Lymphocytes (%) (Auto) 12 % (24-48) Monocytes (%) (Auto) 5 % (0-9) Eosinophils (%) (Auto) 0 % (0-3) Basophils (%) (Auto) 1 % (0-3) Neutrophils # (Auto) 9.9 x10^3/uL (1.8-7.7) Lymphocytes # (Auto) 1.5 x10^3/uL (1.0-4.8) Monocytes # (Auto) 0.6 x10^3/uL (0.0-1.1) Eosinophils # (Auto) 0.0 x10^3/uL (0.0-0.7) Basophils # (Auto) 0.1 x10^3/uL (0.0-0.2) Sodium Level 135 mmol/L (136-145) Potassium Level 2.9 mmol/L (3.5-5.1) Chloride Level 100 mmol/L (98-107) Carbon Dioxide Level 29 mmol/L (21-32) Anion Gap 6 (6-14) Blood Urea Nitrogen 5 mg/dL (7-20) Creatinine 0.7 mg/dL (0.6-1.0) Estimated GFR (Cockcroft-Gault) 83.7 Glucose Level 106 mg/dL (70-99) Calcium Level 7.9 mg/dL (8.5-10.1) Microbiology 10/19/19 Blood Culture - Preliminary, Resulted NO GROWTH AFTER 1 DAY Medications Current Medications Potassium Chloride (Klor-Con) 40 meq 1X ONCE PO Last administered on 10/19/19at 00:56; Start 10/19/19 at 00:30; Stop 10/19/19 at 00:31; Status DC Sodium Chloride 1,000 ml @ 1,000 mls/hr 1X ONCE IV Last administered on 10/19/19at 00:58; Start 10/19/19 at 00:30; Stop 10/19/19 at 01:29; Status DC Levofloxacin/ Dextrose 150 ml @ 100 mls/hr 1X ONCE IV Last administered on 12/20/18at 01:01; Start 10/19/19 at 00:30; Stop 10/19/19 at 01:59; Status DC Acetaminophen (Tylenol) 650 mg 1X ONCE PO Last administered on 10/19/19at 00:56; Start 10/19/19 at 00:30; Stop 10/19/19 at 00:31; Status DC Sodium Chloride 1,000 ml @ 1,000 mls/hr 1X ONCE IV Last administered on 10/19/19at 01:02; Start 10/19/19 at 00:30; Stop 10/19/19 at 01:29; Status DC Ondansetron HCl (Zofran) 4 mg PRN Q8HRS PRN IV NAUSEA/VOMITING; Start 10/19/19 at 01:15; Stop 10/20/19 at 01:14; Status DC Morphine Sulfate (Morphine Sulfate) 2 mg PRN Q2HR PRN IV PAIN; Start 10/19/19 at 01:15; Stop 10/20/19 at 01:14; Status DC Sodium Chloride 1,000 ml @ 200 mls/hr Q5H IV Last administered on 10/19/19at 06:15; Start 10/19/19 at 01:15; Stop 10/19/19 at 12:00; Status DC Acetaminophen (Tylenol) 650 mg PRN Q4HRS PRN PO FEVER Last administered on 10/19/19at 21:21; Start 10/19/19 at 01:15; Stop 10/20/19 at 01:14; Status DC Albuterol/ Ipratropium (Duoneb) 3 ml RTQID NEB Last administered on 10/20/19at 08:12; Start 10/19/19 at 08:00; Stop 10/20/19 at 08:00; Status DC Potassium Chloride (Klor-Con) 40 meq 1X ONCE PO Last administered on 10/19/19at 11:54; Start 10/19/19 at 11:30; Stop 10/19/19 at 11:31; Status DC Magnesium Sulfate 100 ml @ 25 mls/hr 1X ONCE IV Last administered on 10/19/19at 22:42; Start 10/19/19 at 22:15; Stop 10/20/19 at 02:14; Status DC Levothyroxine Sodium (Synthroid) 75 mcg DAILY06 PO Last administered on 10/20/19at 05:26; Start 10/20/19 at 06:00 Non-Formulary Medication (Lisinopril/ Hydrochlorothiazide (Lisinopril-Hctz 20-25 Mg Tab)) 1 tab DAILY PO ; Start 10/20/19 at 09:00; Status UNV Lisinopril (Prinivil) 20 mg DAILY PO Last administered on 10/20/19at 08:54; Start 10/20/19 at 09:00 Hydrochlorothiazide (Hydrodiuril) 25 mg DAILY PO ; Start 10/20/19 at 09:00; Stop 10/19/19 at 22:17; Status DC Levofloxacin/ Dextrose 150 ml @ 100 mls/hr Q24H IV Last administered on 10/20/19at 05:26; Start 10/20/19 at 06:00 Potassium Chloride (Klor-Con) 40 meq 1X ONCE PO Last administered on 10/20/19at 06:20; Start 10/20/19 at 06:30; Stop 10/20/19 at 06:31; Status DC Potassium Chloride/Water 100 ml @ 100 mls/hr Q1H IV Last administered on 10/20/19at 08:55; Start 10/20/19 at 06:30; Stop 10/20/19 at 10:29 Labetalol HCl (Normodyne Iv Push) 20 mg 1X ONCE IVP ; Start 10/20/19 at 09:30; Stop 10/20/19 at 09:31; Status UNV Active Scripts Active Reported Cefdinir 300 Mg Capsule 1 Cap PO BID Levothyroxine Sodium 75 Mcg Tablet 1 Tab PO DAILY Lisinopril-Hctz 20-25 Mg Tab (Lisinopril/Hydrochlorothiazide) 1 Each Tablet 1 Tab PO DAILY Vitals/I & O Vital Sign - Last 24 Hours 10/19/19 10/19/19 10/19/19 10/19/19 09:48 11:00 12:33 15:00 Temp 98.0 98.4 98.0 98.4 Pulse 80 85 Resp 16 18 B/P (MAP) 156/86 (109) 163/87 (112) Pulse Ox 100 97 97 95 O2 Delivery Room Air Room Air Room Air Room Air 10/19/19 10/19/19 10/19/19 10/19/19 15:40 19:45 19:57 21:50 Temp 98.2 98.2 Pulse 78 Resp 20 B/P (MAP) 171/87 (115) Pulse Ox 94 98 98 O2 Delivery Room Air Room Air Room Air Room Air 10/19/19 10/20/19 10/20/19 10/20/19 23:00 00:21 03:55 07:00 Temp 97.8 97.6 98.3 97.8 97.6 98.3 Pulse 72 66 66 Resp 18 16 16 B/P (MAP) 139/82 (101) 157/83 (107) 230/127 (161) Pulse Ox 97 93 93 O2 Delivery Room Air Room Air Room Air Room Air 10/20/19 10/20/19 08:13 08:54 Pulse 66 B/P (MAP) 230/127 Pulse Ox 98 O2 Delivery Room Air Intake and Output 10/19/19 10/19/19 10/20/19 15:00 23:00 07:00 Intake Total 120 ml 480 ml Output Total 50 ml Balance -50 ml 120 ml 480 ml GARCIA MANCERA MD Oct 20, 2019 09:23
[2019-10-20] MEDS ORDERED: LABETALOL 20 MG/4 ML DISP.SYRIN. IVP ONE (09:30)
[2019-10-20] MEDS ORDERED: POTASSIUM CHLORIDE 10MEQ 100 ML IV SCH (11:00)
[2019-10-20] MEDS: VANCOMYCIN 125 MG/2.5 ML ORAL SOLUTION. PO SCH ×2 (17:39→21:29)
[2019-10-20] MEDS: LACTOBACILLUS RHAMNOSUS GG 1 CAPSULE. PO SCH (21:29)
[2019-10-20] MEDS: ACETAMINOPHEN 325 MG TABLET. PO PRN (21:58)
[2019-10-20] MEDS: LABETALOL 20 MG/4 ML DISP.SYRIN. IVP PRN (22:04)
[2019-10-21 03:32] VITALS: BP 148/87
[2019-10-21 04:30] LABS: BASO % 1 % (0-3); EOS # 0.1 x10^3/uL (0.0-0.7); EOS % 1 % (0-3); HEMOGLOBIN 12.7 g/dL (12.0-15.5); LYMPH # 1.7 x10^3/uL (1.0-4.8); LYMPH % 16 % (24-48); MEAN CORPUSCULAR HEMOGLOBIN 28 pg (25-35); MEAN CORPUSCULAR HGB CONC 33 g/dL (31-37); MEAN CORPUSCULAR VOLUME 84 fL (79-100); MONO # 0.7 x10^3/uL (0.0-1.1); MONO % 7 % (0-9); NEUT # 7.9 x10^3/uL (1.8-7.7); NEUT % 75 % (31-73); PLATELET COUNT 305 x10^3/uL (140-400); RED BLOOD COUNT 4.51 x10^6/uL (3.50-5.40); WHITE BLOOD COUNT 10.5 x10^3/uL (4.0-11.0)
[2019-10-21 04:41] LABS: CREATININE 0.8 mg/dL (0.6-1.0); GFR 71.8; POTASSIUM 4.5 mmol/L (3.5-5.1)
[2019-10-21] MEDS: LEVOTHYROXINE 75 MCG TABLET PO SCH (05:48)
--- NOTE | 2019-10-21 07:36 | PDOC ---
PROGRESS NOTES Chief Complaint Chief Complaint A/P: C. difficile diarrhea Cough - sinusitis + bronchitis vs pneumonia failed outpatient antibiotic therapy on cefdinir, will stop levaquin after 5 doses Sepsis - 2/2 above infection. Given fluids, trend lactate, given empiric antibiotics. Negative for inluenza Hypokalemia - with hypomagnesemia - likely from acute illness and concomitant diuretic use. Will hold thiazide Lactic acidosis - 2/2 sepsis. Will trend OA - tylenol for pain HTN - hold thiazide, continue lisinopril Hypothyroidism - cont levothyroxine Weakness - likely related to infection, eletrolytes, will have PT to see FEN - General diet PPX - lovenox FULL CODE Dispo - inpatient likely 2 midnights. History of Present Illness History of Present Illness Ms Burch is a 64 year old female w/ PMHx OA, HTN, back pain who presents with cough, malaise. Reports over the last 3 weeks she has been feeling ill, states she has been a little bit worse each day. States she had gone to her primary care provider is ago, had been started on Cefdinir, states over the last 24 hours she started to feel worse. Reports she has had a fever, cough, denies sore throat, denies any chest pain, denies dizziness. Labs significant for WBC 26.9, Na 125, K 2.7, Glucose 194, Lactate 3.5. CXR with possible left lower lobe haziness. Started on empiric levaquin, changed from cefdinir, admitted for further care. 10/20: C/O headache. BP this morning 230/127. K 2.9. Mg 1.3. Held HCTZ. BP jumped when she was getting potassium replaced. Still with loose BM, positive for c. diff. C difficile positive. BP better. K up to 4.5. Still a bit weak. She does not know if she is ready to go. Less BM already Vitals Vitals Vital Signs Date Time Temp Pulse Resp B/P (MAP) Pulse Ox O2 Delivery O2 Flow Rate FiO2 10/21/19 03:32 97.7 65 18 148/87 (107) 97 Room Air 97.7 Physical Exam General: Alert, Oriented X3, Cooperative, No acute distress Abdomen: Normal bowel sounds, Soft, No tenderness, No hepatosplenomegaly, No masses Extremities: No clubbing, No cyanosis, No edema, Normal pulses, No tenderness/swelling Skin: No rashes, No breakdown, No significant lesion Labs LABS Laboratory Tests Test 10/21/19 03:45 White Blood Count 10.5 x10^3/uL (4.0-11.0) Red Blood Count 4.51 x10^6/uL (3.50-5.40) Hemoglobin 12.7 g/dL (12.0-15.5) Hematocrit 38.0 % (36.0-47.0) Mean Corpuscular Volume 84 fL (79-100) Mean Corpuscular Hemoglobin 28 pg (25-35) Mean Corpuscular Hemoglobin Concent 33 g/dL (31-37) Red Cell Distribution Width 14.0 % (11.5-14.5) Platelet Count 305 x10^3/uL (140-400) Neutrophils (%) (Auto) 75 % (31-73) Lymphocytes (%) (Auto) 16 % (24-48) Monocytes (%) (Auto) 7 % (0-9) Eosinophils (%) (Auto) 1 % (0-3) Basophils (%) (Auto) 1 % (0-3) Neutrophils # (Auto) 7.9 x10^3/uL (1.8-7.7) Lymphocytes # (Auto) 1.7 x10^3/uL (1.0-4.8) Monocytes # (Auto) 0.7 x10^3/uL (0.0-1.1) Eosinophils # (Auto) 0.1 x10^3/uL (0.0-0.7) Basophils # (Auto) 0.0 x10^3/uL (0.0-0.2) Sodium Level 134 mmol/L (136-145) Potassium Level 4.5 mmol/L (3.5-5.1) Chloride Level 99 mmol/L (98-107) Carbon Dioxide Level 27 mmol/L (21-32) Anion Gap 8 (6-14) Blood Urea Nitrogen 11 mg/dL (7-20) Creatinine 0.8 mg/dL (0.6-1.0) Estimated GFR (Cockcroft-Gault) 71.8 Glucose Level 88 mg/dL (70-99) Calcium Level 8.0 mg/dL (8.5-10.1) Comment Review of Relevant I have reviewed the following items jada (where applicable) has been applied. Labs Laboratory Tests Test 10/19/19 09:00 10/19/19 20:00 10/20/19 04:45 10/21/19 03:45 White Blood Count 22.4 x10^3/uL (4.0-11.0) 12.0 x10^3/uL (4.0-11.0) 10.5 x10^3/uL (4.0-11.0) Red Blood Count 4.56 x10^6/uL (3.50-5.40) 4.48 x10^6/uL (3.50-5.40) 4.51 x10^6/uL (3.50-5.40) Hemoglobin 12.9 g/dL (12.0-15.5) 12.6 g/dL (12.0-15.5) 12.7 g/dL (12.0-15.5) Hematocrit 38.2 % (36.0-47.0) 37.5 % (36.0-47.0) 38.0 % (36.0-47.0) Mean Corpuscular Volume 84 fL (79-100) 84 fL (79-100) 84 fL (79-100) Mean Corpuscular Hemoglobin 28 pg (25-35) 28 pg (25-35) 28 pg (25-35) Mean Corpuscular Hemoglobin Concent 34 g/dL (31-37) 34 g/dL (31-37) 33 g/dL (31-37) Red Cell Distribution Width 13.8 % (11.5-14.5) 13.8 % (11.5-14.5) 14.0 % (11.5-14.5) Platelet Count 279 x10^3/uL (140-400) 272 x10^3/uL (140-400) 305 x10^3/uL (140-400) Neutrophils (%) (Auto) 91 % (31-73) 82 % (31-73) 75 % (31-73) Lymphocytes (%) (Auto) 3 % (24-48) 12 % (24-48) 16 % (24-48) Monocytes (%) (Auto) 7 % (0-9) 5 % (0-9) 7 % (0-9) Eosinophils (%) (Auto) 0 % (0-3) 0 % (0-3) 1 % (0-3) Basophils (%) (Auto) 0 % (0-3) 1 % (0-3) 1 % (0-3) Neutrophils # (Auto) 20.3 x10^3/uL (1.8-7.7) 9.9 x10^3/uL (1.8-7.7) 7.9 x10^3/uL (1.8-7.7) Lymphocytes # (Auto) 0.6 x10^3/uL (1.0-4.8) 1.5 x10^3/uL (1.0-4.8) 1.7 x10^3/uL (1.0-4.8) Monocytes # (Auto) 1.5 x10^3/uL (0.0-1.1) 0.6 x10^3/uL (0.0-1.1) 0.7 x10^3/uL (0.0-1.1) Eosinophils # (Auto) 0.0 x10^3/uL (0.0-0.7) 0.0 x10^3/uL (0.0-0.7) 0.1 x10^3/uL (0.0-0.7) Basophils # (Auto) 0.0 x10^3/uL (0.0-0.2) 0.1 x10^3/uL (0.0-0.2) 0.0 x10^3/uL (0.0-0.2) Sodium Level 135 mmol/L (136-145) 135 mmol/L (136-145) 134 mmol/L (136-145) Potassium Level 3.1 mmol/L (3.5-5.1) 2.9 mmol/L (3.5-5.1) 4.5 mmol/L (3.5-5.1) Chloride Level 98 mmol/L (98-107) 100 mmol/L (98-107) 99 mmol/L (98-107) Carbon Dioxide Level 27 mmol/L (21-32) 29 mmol/L (21-32) 27 mmol/L (21-32) Anion Gap 10 (6-14) 6 (6-14) 8 (6-14) Blood Urea Nitrogen 7 mg/dL (7-20) 5 mg/dL (7-20) 11 mg/dL (7-20) Creatinine 0.7 mg/dL (0.6-1.0) 0.7 mg/dL (0.6-1.0) 0.8 mg/dL (0.6-1.0) Estimated GFR (Cockcroft-Gault) 83.7 83.7 71.8 Glucose Level 137 mg/dL (70-99) 106 mg/dL (70-99) 88 mg/dL (70-99) Calcium Level 7.1 mg/dL (8.5-10.1) 7.9 mg/dL (8.5-10.1) 8.0 mg/dL (8.5-10.1) Magnesium Level 1.3 mg/dL (1.8-2.4) 3.0 mg/dL (1.8-2.4) Clostridium difficile Toxin B Gene Positive (Negative) Laboratory Tests Test 10/21/19 03:45 White Blood Count 10.5 x10^3/uL (4.0-11.0) Red Blood Count 4.51 x10^6/uL (3.50-5.40) Hemoglobin 12.7 g/dL (12.0-15.5) Hematocrit 38.0 % (36.0-47.0) Mean Corpuscular Volume 84 fL (79-100) Mean Corpuscular Hemoglobin 28 pg (25-35) Mean Corpuscular Hemoglobin Concent 33 g/dL (31-37) Red Cell Distribution Width 14.0 % (11.5-14.5) Platelet Count 305 x10^3/uL (140-400) Neutrophils (%) (Auto) 75 % (31-73) Lymphocytes (%) (Auto) 16 % (24-48) Monocytes (%) (Auto) 7 % (0-9) Eosinophils (%) (Auto) 1 % (0-3) Basophils (%) (Auto) 1 % (0-3) Neutrophils # (Auto) 7.9 x10^3/uL (1.8-7.7) Lymphocytes # (Auto) 1.7 x10^3/uL (1.0-4.8) Monocytes # (Auto) 0.7 x10^3/uL (0.0-1.1) Eosinophils # (Auto) 0.1 x10^3/uL (0.0-0.7) Basophils # (Auto) 0.0 x10^3/uL (0.0-0.2) Sodium Level 134 mmol/L (136-145) Potassium Level 4.5 mmol/L (3.5-5.1) Chloride Level 99 mmol/L (98-107) Carbon Dioxide Level 27 mmol/L (21-32) Anion Gap 8 (6-14) Blood Urea Nitrogen 11 mg/dL (7-20) Creatinine 0.8 mg/dL (0.6-1.0) Estimated GFR (Cockcroft-Gault) 71.8 Glucose Level 88 mg/dL (70-99) Calcium Level 8.0 mg/dL (8.5-10.1) Microbiology 10/19/19 Blood Culture - Preliminary, Resulted NO GROWTH AFTER 2 DAYS Medications Current Medications Potassium Chloride (Klor-Con) 40 meq 1X ONCE PO Last administered on 10/19/19at 00:56; Start 10/19/19 at 00:30; Stop 10/19/19 at 00:31; Status DC Sodium Chloride 1,000 ml @ 1,000 mls/hr 1X ONCE IV Last administered on at 00:58; Start 10/19/19 at 00:30; Stop 10/19/19 at 01:29; Status DC Levofloxacin/ Dextrose 150 ml @ 100 mls/hr 1X ONCE IV Last administered on 10/19/19 01:01; Start 10/19/19 at 00:30; Stop 10/19/19 at 01:59; Status DC Acetaminophen (Tylenol) 650 mg 1X ONCE PO Last administered on 10/19/19at 00:56; Start 10/19/19 at 00:30; Stop 10/19/19 at 00:31; Status DC Sodium Chloride 1,000 ml @ 1,000 mls/hr 1X ONCE IV Last administered on 10/19/19 01:02; Start 10/19/19 at 00:30; Stop 10/19/19 at 01:29; Status DC Ondansetron HCl (Zofran) 4 mg PRN Q8HRS PRN IV NAUSEA/VOMITING; Start 10/19/19 at 01:15; Stop 10/20/19 at 01:14; Status DC Morphine Sulfate (Morphine Sulfate) 2 mg PRN Q2HR PRN IV PAIN; Start 10/19/19 at 01:15; Stop 10/20/19 at 01:14; Status DC Sodium Chloride 1,000 ml @ 200 mls/hr Q5H IV Last administered on 10/19/19at 06:15; Start 10/19/19 at 01:15; Stop 10/19/19 at 12:00; Status DC Acetaminophen (Tylenol) 650 mg PRN Q4HRS PRN PO FEVER Last administered on 10/19/19at 21:21; Start 10/19/19 at 01:15; Stop 10/20/19 at 01:14; Status DC Albuterol/ Ipratropium (Duoneb) 3 ml RTQID NEB Last administered on 10/20/19at 08:12; Start 10/19/19 at 08:00; Stop 10/20/19 at 08:00; Status DC Potassium Chloride (Klor-Con) 40 meq 1X ONCE PO Last administered on 10/19/19at 11:54; Start 10/19/19 at 11:30; Stop 10/19/19 at 11:31; Status DC Magnesium Sulfate 100 ml @ 25 mls/hr 1X ONCE IV Last administered on 10/19/19at 22:42; Start 10/19/19 at 22:15; Stop 10/20/19 at 02:14; Status DC Levothyroxine Sodium (Synthroid) 75 mcg DAILY06 PO Last administered on 10/21/19at 05:48; Start 10/20/19 at 06:00 Non-Formulary Medication (Lisinopril/ Hydrochlorothiazide (Lisinopril-Hctz 20-25 Mg Tab)) 1 tab DAILY PO ; Start 10/20/19 at 09:00; Status UNV Lisinopril (Prinivil) 20 mg DAILY PO Last administered on 10/20/19at 08:54; Start 10/20/19 at 09:00 Hydrochlorothiazide (Hydrodiuril) 25 mg DAILY PO ; Start 10/20/19 at 09:00; Stop 10/19/19 at 22:17; Status DC Levofloxacin/ Dextrose 150 ml @ 100 mls/hr Q24H IV Last administered on 10/21/19 05:48; Start 10/20/19 at 06:00 Potassium Chloride (Klor-Con) 40 meq 1X ONCE PO Last administered on 10/20/19 06:20; Start 10/20/19 at 06:30; Stop 10/20/19 at 06:31; Status DC Potassium Chloride/Water 100 ml @ 100 mls/hr Q1H IV Last administered on 10/20/19 09:32; Start 10/20/19 at 06:30; Stop 10/20/19 at 10:29; Status DC Labetalol HCl (Normodyne Iv Push) 20 mg 1X ONCE IVP Last administered on 10/20/19 09:31; Start 10/20/19 at 09:30; Stop 10/20/19 at 09:31; Status DC Potassium Chloride/Water 100 ml @ 100 mls/hr Q1H IV ; Start 10/20/19 at 11:00; Stop 10/20/19 at 11:35; Status DC Lactobacillus Rhamnosus (Culturelle) 1 cap BID PO Last administered on 10/20/19at 21:29; Start 10/20/19 at 21:00 Vancomycin HCl (Vancomycin Oral Solution) 125 mg [id number] PO Last administered on 10/20/19 21:29; Start 10/20/19 at 17:00 Acetaminophen (Tylenol) 650 mg PRN Q6HRS PRN PO MILD PAIN / TEMP Last administered on 10/20/19 21:58; Start 10/20/19 at 21:45 Labetalol HCl (Normodyne Iv Push) 10 mg PRN Q2HR PRN IVP HYPERTENSION Last administered on 10/20/19at 22:04; Start 10/20/19 at 21:45 Active Scripts Active Reported Cefdinir 300 Mg Capsule 1 Cap PO BID Levothyroxine Sodium 75 Mcg Tablet 1 Tab PO DAILY Lisinopril-Hctz 20-25 Mg Tab (Lisinopril/Hydrochlorothiazide) 1 Each Tablet 1 Tab PO DAILY Vitals/I & O Vital Sign - Last 24 Hours 10/20/19 10/20/19 10/20/19 10/20/19 08:00 08:13 08:54 09:31 Pulse 66 66 B/P (MAP) 230/127 230/127 Pulse Ox 98 O2 Delivery Room Air Room Air 10/20/19 10/20/19 10/20/19 10/20/19 11:00 15:00 19:58 20:30 Temp 98.0 98.0 98.6 98.0 98.0 98.6 Pulse 75 77 78 Resp 18 18 18 B/P (MAP) 157/95 (115) 190/95 (126) 187/100 (129) Pulse Ox 96 97 97 O2 Delivery Room Air Room Air Room Air Room Air 10/20/19 10/20/19 10/21/19 22:04 23:57 03:32 Temp 98.4 97.7 98.4 97.7 Pulse 78 68 65 Resp 18 18 B/P (MAP) 187/100 158/95 (116) 148/87 (107) Pulse Ox 97 97 O2 Delivery Room Air Intake and Output 10/20/19 10/20/19 10/21/19 15:00 23:00 07:00 Intake Total 200 ml 260 ml Balance 200 ml 260 ml GARCIA MANCERA MD Oct 21, 2019 07:36
[2019-10-21 07:56] VITALS: BP 150/91
[2019-10-21] MEDS: LACTOBACILLUS RHAMNOSUS GG 1 CAPSULE. PO SCH ×2 (08:17→20:15)
[2019-10-21] MEDS: VANCOMYCIN 125 MG/2.5 ML ORAL SOLUTION. PO SCH ×4 (08:17→20:15)
[2019-10-21] MEDS: LISINOPRIL 20 MG TABLET PO SCH (08:17)
[2019-10-21] MEDS ORDERED: VANC500V PO (10:24)
[2019-10-21 11:30] VITALS: BP 182/102
[2019-10-21] MEDS: amLODIPine BESYLATE 5 MG TABLET PO SCH (12:27)
[2019-10-21] MEDS: LABETALOL 20 MG/4 ML DISP.SYRIN. IVP PRN (15:04)
[2019-10-21 15:11] VITALS: BP 199/94
[2019-10-21 19:20] VITALS: BP 149/92
[2019-10-21] MEDS: ACETAMINOPHEN 325 MG TABLET. PO PRN (20:31)
[2019-10-21 23:57] VITALS: BP 164/95
[2019-10-22 03:15] VITALS: BP 145/77
[2019-10-22] MEDS: LEVOTHYROXINE 75 MCG TABLET PO SCH (05:31)
[2019-10-22 07:00] VITALS: BP 155/86
[2019-10-22] MEDS: LACTOBACILLUS RHAMNOSUS GG 1 CAPSULE. PO SCH (08:05)
[2019-10-22] MEDS: amLODIPine BESYLATE 5 MG TABLET PO SCH (08:05)
[2019-10-22] MEDS: VANCOMYCIN 125 MG/2.5 ML ORAL SOLUTION. PO SCH ×3 (08:06→16:42)
[2019-10-22] MEDS: LISINOPRIL 20 MG TABLET PO SCH (08:06)
[2019-10-22 11:00] VITALS: BP 157/92
--- NOTE | 2019-10-22 13:12 | PDOC ---
[employer] PROGRESS NOTE Chief Complaint Chief Complaint C. difficile diarrhea, resolved Cough - sinusitis + bronchitis vs pneumonia, resolving Sepsis, resolved OA HTN Hypothyroidism History of Present Illness History of Present Illness 10/22/19 Pt seen and examined DW pt DW RN Reviewed pt's chart Vitals/I&O Vitals/I&O: Vital Signs Date Time Temp Pulse Resp B/P (MAP) Pulse Ox O2 Delivery O2 Flow Rate FiO2 10/22/19 11:00 98.1 117 18 157/92 (113) 99 Room Air 98.1 I & O 10/21/19 10/21/19 10/22/19 15:00 23:00 07:00 Intake Total 150 ml 300 ml 0 ml Balance 150 ml 300 ml 0 ml Physical Exam General: Alert, Oriented X3, Cooperative, No acute distress Heart: Regular rate, Normal S1, Normal S2 Lungs: Clear Abdomen: Normal bowel sounds, Soft, No tenderness, No hepatosplenomegaly, No masses Extremities: No clubbing, No cyanosis, No edema, Normal pulses, No tenderness/swelling Skin: No rashes, No breakdown, No significant lesion Review of Systems Review of Systems: No c/o headaches No c/o CP Assessment and Plan Assessmemt and Plan Assessment C. difficile diarrhea, resolved Cough - sinusitis + bronchitis vs pneumonia, resolving Sepsis, resolved OA HTN Hypothyroidism Plan Abx DVT Prophylaxis PT/OT Labs Home meds Full code Probable discharge Comment Review of Relevant I have reviewed the following items jada (where applicable) has been applied. MIRTA LÓPEZ III DO Oct 22, 2019 13:12
[2019-10-22 14:40] VITALS: BP 148/93
== END 2019-10-22 17:04 | disposition home or self-care (01) | DRG 871 ==
LOC: ER 20:02 → 6 SOUTH 10-19 01:14
PROVIDERS: ADMIT Internal Medicine; ATTEND Internal Medicine
DX: A41.9 Sepsis, unspecified organism (principal); J18.9 Pneumonia, unspecified organism; A04.72 Enterocolitis due to Clostridium difficile, not specified as recurrent; E87.2 Acidosis; M19.90 Unspecified osteoarthritis, unspecified site; I10 Essential (primary) hypertension; E83.42 Hypomagnesemia; E87.6 Hypokalemia; E03.9 Hypothyroidism, unspecified; J40 Bronchitis, not specified as acute or chronic; Z90.710 Acquired absence of both cervix and uterus; Z90.49 Acquired absence of other specified parts of digestive tract; Z82.49 Family history of ischemic heart disease and other diseases of the circulatory system
CPT/HCPCS: 36415; 71045; 80048; 80053; 81001; 83605; 83735; 84484; 85007; 85025; 87040; 87493; 87804; 94640; 96365; J1956; J3475; J3480; J3490; J7030; J7620; 99285-25; G0378

== ENCOUNTER 2020-04-03 22:18 | Emergency (ER) | payer BC ==
[~2020-04-03] VITALS: Ht 144.8 cm; Wt 64.0 kg
[~2020-04-03 22:18] MED LIST changes: +CEFD300C PO; +LEVO75TA5 PO; +LISI1TAB20 PO; +VANC500V PO
[2020-04-03] MEDS ORDERED: IV NORMAL SALINE 1000ML BAG 1,000 ML IV SCH (22:53)
[2020-04-03] MEDS ORDERED: fentaNYL PF VIAL 100 MCG/2 ML VIAL IV PRN (23:00)
[2020-04-03 23:10] LABS: BASO # 0.1 x10^3/uL (0.0-0.2); BASO % 1 % (0-3); EOS # 0.1 x10^3/uL (0.0-0.7); EOS % 1 % (0-3); HEMATOCRIT 48.2 % (36.0-47.0); HEMOGLOBIN 16.3 g/dL (12.0-15.5); LYMPH # 1.5 x10^3/uL (1.0-4.8); LYMPH % 20 % (24-48); MEAN CORPUSCULAR HEMOGLOBIN 27 pg (25-35); MEAN CORPUSCULAR HGB CONC 34 g/dL (31-37); MEAN CORPUSCULAR VOLUME 80 fL (79-100); MONO # 0.7 x10^3/uL (0.0-1.1); MONO % 9 % (0-9); NEUT # 5.1 x10^3/uL (1.8-7.7); NEUT % 69 % (31-73); PLATELET COUNT 373 x10^3/uL (140-400); RED CELL DISTRIBUTION WIDTH 15.3 % (11.5-14.5); WHITE BLOOD COUNT 7.4 x10^3/uL (4.0-11.0)
[2020-04-03 23:10] LABS: BILIRUBIN,URINE NEGATIVE (NEG); CLARITY,URINE CLEAR; COLOR,URINE YELLOW; NITRITE,URINE NEGATIVE (NEG); PROTEIN,URINE NEGATIVE (NEG-TRACE); UROBILINOGEN,URINE 0.2 mg/dL (0.2 mg/dL)
[2020-04-03 23:16] LABS: BACTERIA,URINE MANY /HPF (0-FEW); RBC,URINE 0 /HPF (0-2)
[2020-04-03 23:17] LABS: SQUAMOUS EPITHELIAL CELL,UR MOD /LPF
[2020-04-03 23:29] LABS: CALCIUM 7.9 mg/dL (8.5-10.1); CREATININE 0.9 mg/dL (0.6-1.0); GFR 62.6
[2020-04-03] MEDS ORDERED: FAMOTIDINE 20 MG/2 ML VIAL IVP ONE (23:30)
[2020-04-03] MEDS ORDERED: ONDANSETRON PF 4 MG/2 ML VIAL. IVP ONE (23:30)
[2020-04-03 23:35] LABS: ALBUMIN 3.1 g/dL (3.4-5.0); ALBUMIN/GLOBULIN RATIO 0.9 (1.0-1.7); TOTAL BILIRUBIN 0.7 mg/dL (0.2-1.0); TOTAL PROTEIN 6.6 g/dL (6.4-8.2)
--- NOTE | 2020-04-03 23:48 | PHYS DOC ---
Past Medical History Past Medical History: Arthritis, Hypertension, Other Additional Past Medical Histor: back pain Past Surgical History: Appendectomy, , Tonsillectomy, Other Additional Past Surgical Histo: Right knee repair-no knee cap, thyroidectomy Smoking Status: Former Smoker Alcohol Use: None Drug Use: None General Adult EDM: Chief Complaint: ABDOMINAL PAIN HPI: HPI: Patient is a 64 year old female who presents with complaint of upper abdominal pain that started this evening after dinner. She rates pain at an 8 out of 10. She states that she has felt nauseated but has not been able to vomit. She indicates that initially the pain was radiating into her back but is not really radiating anymore. She states that earlier the pain was worse at a 10 out of 10. She denies any fever. She denies any diarrhea and states that her last normal bowel movement was yesterday. [] Review of Systems: Review of Systems: Constitutional: Denies fever or chills. [] Respiratory: Denies cough or shortness of breath. [] Cardiovascular: Denies chest pain or edema. [] GI: Complains of upper abdominal pain with nausea. Denies vomiting or diarrhea. [] Integument: Denies rash. [] Neurologic: Denies headache, focal weakness or sensory changes. [] A full 10 point review of systems has been reviewed and is otherwise negative. Heart Score: Risk Factors: Risk Factors: DM, Current or recent (<one month) smoker, HTN, HLP, family history of CAD, obesity. Risk Scores: Score 0 - 3: 2.5% MACE over next 6 weeks - Discharge Home Score 4 - 6: 20.3% MACE over next 6 weeks - Admit for Clinical Observation Score 7 - 10: 72.7% MACE over next 6 weeks - Early Invasive Strategies Current Medications: Current Medications Medications (Trade) Dose Ordered Sig/David Start Time Stop Time Status Last Admin Dose Admin Famotidine (Pepcid Vial) 20 mg 1X ONCE 04/03/20 23:30 04/03/20 23:31 DC 04/03/20 23:22 20 MG Fentanyl Citrate (Fentanyl 2ml Vial) 50 mcg PRN Q15MIN PRN 04/03/20 23:00 04/04/20 22:59 Ondansetron HCl (Zofran) 4 mg 1X ONCE 04/03/20 23:30 04/03/20 23:31 DC 04/03/20 23:23 4 MG Sodium Chloride 1,000 ml @ 1,000 mls/hr Q1H 04/03/20 22:53 04/03/20 23:52 04/03/20 23:06 1,000 MLS/HR Allergies: Allergies: Allergies Coded Allergies Type Severity Reaction Last Updated Verified Tetanus Vaccines and Toxoid Allergy Intermediate 08/23/15 Yes Physical Exam: PE: Constitutional: Well developed, well nourished, no acute distress, non-toxic appearance. [] HENT: Normocephalic, atraumatic, bilateral external ears normal, oropharynx moist, no oral exudates, nose normal. [] Eyes: PERRLA, EOMI, conjunctiva normal, no discharge. [] Neck: Normal range of motion, no tenderness, supple. [] Cardiovascular: Regular rate and rhythm [] Lungs & Thorax: Bilateral breath sounds clear to auscultation [] Abdomen: Bowel sounds normal, soft, with epigastric tenderness. [] Skin: Warm, dry, no erythema, no rash. [] Extremities: No tenderness, no cyanosis, no clubbing, ROM intact. [] Neurologic: Alert and oriented X 3, no focal deficits noted. [] Current Patient Data: Labs: Laboratory Tests Test 04/03/20 22:30 04/03/20 22:37 Urine Collection Type Unknown Urine Color Yellow Urine Clarity Clear Urine pH 7.0 (<5.0-8.0) Urine Specific Be[place] <=1.005 (1.000-1.030) Urine Protein Negative mg/dL (NEG-TRACE) Urine Glucose (UA) Negative mg/dL (NEG) Urine Ketones (Stick) Negative mg/dL (NEG) Urine Blood Negative (NEG) Urine Nitrite Negative (NEG) Urine Bilirubin Negative (NEG) Urine Urobilinogen Dipstick 0.2 mg/dL (0.2 mg/dL) Urine Leukocyte Esterase Negative (NEG) Urine RBC 0 /HPF (0-2) Urine WBC 1-4 /HPF (0-4) Urine Squamous Epithelial Cells Mod /LPF Urine Bacteria Many /HPF (0-FEW) Urine Mucus Slight /LPF White Blood Count 7.4 x10^3/uL (4.0-11.0) Red Blood Count 6.00 x10^6/uL (3.50-5.40) H Hemoglobin 16.3 g/dL (12.0-15.5) H Hematocrit 48.2 % (36.0-47.0) H Mean Corpuscular Volume 80 fL (79-100) Mean Corpuscular Hemoglobin 27 pg (25-35) Mean Corpuscular Hemoglobin Concent 34 g/dL (31-37) Red Cell Distribution Width 15.3 % (11.5-14.5) H Platelet Count 373 x10^3/uL (140-400) Neutrophils (%) (Auto) 69 % (31-73) Lymphocytes (%) (Auto) 20 % (24-48) L Monocytes (%) (Auto) 9 % (0-9) Eosinophils (%) (Auto) 1 % (0-3) Basophils (%) (Auto) 1 % (0-3) Neutrophils # (Auto) 5.1 x10^3/uL (1.8-7.7) Lymphocytes # (Auto) 1.5 x10^3/uL (1.0-4.8) Monocytes # (Auto) 0.7 x10^3/uL (0.0-1.1) Eosinophils # (Auto) 0.1 x10^3/uL (0.0-0.7) Basophils # (Auto) 0.1 x10^3/uL (0.0-0.2) Laboratory Tests 04/03/20 22:37 Vital Signs: Vital Signs Date Time Temp Pulse Resp B/P (MAP) Pulse Ox O2 Delivery O2 Flow Rate FiO2 04/03/20 22:32 98.2 76 20 171/84 (113) 100 Room Air 98.2 EKG: EKG: [] Radiology/Procedures: Radiology/Procedures: [] Course & Med Decision Making: Course & Med Decision Making Pertinent Labs and Imaging studies reviewed. (See chart for details) [] Dragon Disclaimer: Dragon Disclaimer: This electronic medical record was generated, in whole or in part, using a voice recognition dictation system. Departure Departure Impression: Primary Impression: Abdominal pain Qualified Codes: R10.13 - Epigastric pain Additional Impression: Hypokalemia Disposition: 01 HOME, SELF-CARE Condition: STABLE Referrals: KAY MENDOZA (PCP) Patient Instructions: Abdominal Pain, Hypokalemia Scripts Potassium Citrate (POTASSIUM CITRATE) 10 Meq Tablet.er 1 TAB PO DAILY, #7 TAB Prov: ELEAZAR SCHUMACHER Jr. DO 04/04/20 Ondansetron (ONDANSETRON ODT) 4 Mg Tab.rapdis 1 TAB PO PRN Q6-8HRS PRN for NAUSEA, #15 TAB Prov: ELEAZAR SCHUMACHER Jr. DO 04/04/20 Justicifation of Admission Dx: Justifications for Admission: Justification of Admission Dx: Comment: (Not applicable) ELEAZAR SCHUMACHER Jr. DO Apr 03, 2020 23:48
[2020-04-03 23:54] LABS: POTASSIUM 2.6 mmol/L (3.5-5.1)
[2020-04-04] MEDS ORDERED: POTASSIUM CHLORIDE 20MEQ 100 ML IV ONE (00:15)
[2020-04-04] MEDS ORDERED: POTASSIUM CHLORIDE 20 MEQ TABLET.ER. PO ONE (00:15)
[2020-04-04] MEDS ORDERED: IV NORMAL SALINE 1000ML BAG 1,000 ML IV ONE (02:15)
[2020-04-04] MEDS ORDERED: ONDA4TAB12 PO (03:39)
[2020-04-04] MEDS ORDERED: POTA10TA17 PO (03:39)
[2020-04-04 03:45] VITALS: BP 187/88
== END 2020-04-04 04:22 | disposition home or self-care (01) ==
LOC: ER 22:18
DX: R10.13 Epigastric pain (principal); E87.6 Hypokalemia; R11.0 Nausea; M19.90 Unspecified osteoarthritis, unspecified site; I10 Essential (primary) hypertension; Z90.89 Acquired absence of other organs; Z98.890 Other specified postprocedural states; Z87.891 Personal history of nicotine dependence; Z88.7 Allergy status to serum and vaccine
CPT/HCPCS: 36415; 80053; 81001; 83690; 85025; 87086; 96365; 96366; 96375; 99285; J2405; J3480; J3490; J7030

== ENCOUNTER 2020-07-17 11:51 | Emergency (ER) | payer BC ==
[~2020-07-17] VITALS: Ht 144.8 cm; Wt 65.9 kg
[~2020-07-17 11:51] MED LIST changes: +ONDA4TAB12 PO; +POTA10TA17 PO
[2020-07-17] MEDS ORDERED: cloNIDine HCL 0.1 MG TABLET PO ONE (13:00)
--- NOTE | 2020-07-17 13:11 | PHYS DOC ---
Past Medical History Past Medical History: Arthritis, Hypertension, Hypothyroid, Other Additional Past Medical Histor: back pain (KENNY GALAN MD) Past Surgical History: Appendectomy, , Tonsillectomy, Other Additional Past Surgical Histo: Right knee repair-no knee cap, thyroidectomy (KENNY GALAN MD) Smoking Status: Former Smoker Alcohol Use: None Drug Use: None (KENNY GALAN MD) General Adult EDM: Chief Complaint: HYPERTENSION HPI: HPI: Patient is a 65 year old [f__sex] who presents with [] (KENNY GALAN MD) HPI: This is a 64-year-old female patient presenting to the ED today complaining of high blood pressure reading that was noted when she went at an outpatient urgent care facility to have COVID19 testing done. She states she has history of hypertension and is on lisinopril. Denies any chest pain, shortness of breath, fever, cough or congestion. (CHELSI VELAZQUEZ APRN) Review of Systems: Review of Systems: Constitutional: Denies fever or chills. [] Eyes: Denies change in visual acuity. [] HENT: Denies nasal congestion or sore throat. [] Respiratory: Denies cough or shortness of breath. [] Cardiovascular: Denies chest pain or edema. [] GI: Denies abdominal pain, nausea, vomiting, bloody stools or diarrhea. [] : Denies dysuria. [] Musculoskeletal: Denies back pain or joint pain. [] Integument: Denies rash. [] Neurologic: Denies headache, focal weakness or sensory changes. [] Endocrine: Denies polyuria or polydipsia. [] Lymphatic: Denies swollen glands. [] Psychiatric: Denies depression or anxiety. [] (KENNY GALAN MD) Review of Systems: Constitutional: Denies fever or chills. [] Eyes: Denies change in visual acuity. [] HENT: Denies nasal congestion or sore throat. [] Respiratory: Denies cough or shortness of breath. [] Cardiovascular: Reports high blood pressure reading. Denies chest pain or edema. [] GI: Denies abdominal pain, nausea, vomiting, bloody stools or diarrhea. [] : Denies dysuria. [] Musculoskeletal: Denies back pain or joint pain. [] Integument: Denies rash. [] Neurologic: Denies headache, focal weakness or sensory changes. [] Psychiatric: Denies depression or anxiety. [] (CHELSI VELAZQUEZ APRN) Heart Score: Risk Factors: Risk Factors: DM, Current or recent (<one month) smoker, HTN, HLP, family history of CAD, obesity. Risk Scores: Score 0 - 3: 2.5% MACE over next 6 weeks - Discharge Home Score 4 - 6: 20.3% MACE over next 6 weeks - Admit for Clinical Observation Score 7 - 10: 72.7% MACE over next 6 weeks - Early Invasive Strategies (KENNY GALAN MD) Current Medications: Current Medications Medications (Trade) Dose Ordered Sig/David Start Time Stop Time Status Last Admin Dose Admin Clonidine HCl (Catapres) 0.1 mg 1X ONCE 07/17/20 13:00 07/17/20 13:02 DC (KENNY GALAN MD) Allergies: Allergies: Allergies Coded Allergies Type Severity Reaction Last Updated Verified Tetanus Vaccines and Toxoid Allergy Intermediate 08/23/15 Yes (KENNY GALAN MD) Physical Exam: PE: Constitutional: Well developed, well nourished, no acute distress, non-toxic appearance. [] HENT: Normocephalic, atraumatic, bilateral external ears normal, oropharynx moist, no oral exudates, nose normal. [] Eyes: PERRLA, EOMI, conjunctiva normal, no discharge. [] Neck: Normal range of motion, no tenderness, supple, no stridor. [] Cardiovascular:Heart rate regular rhythm, no murmur [] Lungs & Thorax: Bilateral breath sounds clear to auscultation [] Abdomen: Bowel sounds normal, soft, no tenderness, no masses, no pulsatile masses. [] Skin: Warm, dry, no erythema, no rash. [] Back: No tenderness, no CVA tenderness. [] Extremities: No tenderness, no cyanosis, no clubbing, ROM intact, no edema. [] Neurologic: Alert and oriented X 3, normal motor function, normal sensory function, no focal deficits noted. [] Psychologic: Affect normal, judgement normal, mood normal. [] (KENNY GALAN MD) PE: Constitutional: Well developed, well nourished, no acute distress, non-toxic appearance. [] HENT: Normocephalic, atraumatic, bilateral external ears normal, oropharynx moist, no oral exudates, nose normal. [] Eyes: PERRLA, EOMI, conjunctiva normal, no discharge. [] Neck: Normal range of motion, no tenderness, supple, no stridor. [] Cardiovascular:Heart rate regular rhythm, no murmur [] Lungs & Thorax: Bilateral breath sounds clear to auscultation [] Abdomen: Bowel sounds normal, soft, no tenderness, no masses, no pulsatile mass es. [] Skin: Warm, dry, no erythema, no rash. [] Back: No tenderness, no CVA tenderness. [] Extremities: No tenderness, no cyanosis, no clubbing, ROM intact, no edema. [] Neurologic: Alert and oriented X 3, normal motor function, normal sensory function, no focal deficits noted. [] Psychologic: Affect normal, judgement normal, mood normal. [] (CHELSI VELAZQUEZ APRN) Current Patient Data: Vital Signs: Vital Signs Date Time Temp Pulse Resp B/P (MAP) Pulse Ox O2 Delivery O2 Flow Rate FiO2 07/17/20 12:52 98.1 92 20 217/112 (147) 97 Room Air 98.1 (KENNY GALAN MD) EKG: EKG: EKG shows sinus rhythm with a regular rate. ST segments congruent. Not suggestive of acute ischemia. [] (KENNY GALAN MD) Radiology/Procedures: Radiology/Procedures: [] (KENNY GALAN MD) Radiology/Procedures: PROCEDURE: PORTABLE CHEST 1V AP chest x-ray HISTORY: Hypertension. COMPARISON: Chest x-ray October 18, 2019. FINDINGS: Heart size stable. Tortuosity/aneurysm of the aortic arch stable. No pneumothorax, pulmonary opacities or pleural effusions. Bones unremarkable. IMPRESSION: No acute process. Stable exam. Electronically signed by: Jazzy Holland MD (07/17/2020 1:18 PM) [facility] [place] DICTATED and SIGNED BY: JAZZY HOLLAND MD DATE: 07/17/20 3263 (CHELSI VELAZQUEZ APRN) Course & Med Decision Making: Course & Med Decision Making Pertinent Labs and Imaging studies reviewed. (See chart for details) [] (KNENY GALAN MD) Course & Med Decision Making This is a 65-year-old female patient presenting to the ED today complaining of high blood pressure reading that was noted at an urgent care facility where she went to get COVID19 testing done. Patient has no other symptoms. EKG is negative, labs are negative including troponin. Blood pressure was 217/112 with a heart rate of 92 on arrival to the ED, patient reports having a lot of stress right now. She was given clonidine, blood pressure came down to 170 over 80s. She was discharged to home. She has a PCP she will follow-up next week. (CHELSI VELAZQUEZ APRN) Dragon Disclaimer: Dragon Disclaimer: This electronic medical record was generated, in whole or in part, using a voice recognition dictation system. (KENNY GALAN MD) Departure Departure Impression: Primary Impression: Hypertension Qualified Codes: I10 - Essential (primary) hypertension Disposition: HOME, SELF-CARE Condition: STABLE Referrals: KAY MENDOZA (PCP) follow up next week Patient Instructions: Hypertension Additional Instructions: You were evaluated in the emergency room for high blood pressure. Continue using your blood pressure medicine as prescribed by your doctor. Follow-up with your doctor next week. Come back to the ED at any point you have worsening or concerning symptoms. Justicifation of Admission Dx: Justifications for Admission: Justification of Admission Dx: N/A (CHELSI VELAZQUEZ APRN) KENNY GALAN MD Jul 17, 2020 13:11 CHELSI VELAZQUEZ APRN Jul 17, 2020 15:28
--- NOTE | 2020-07-17 13:21 | RAD ---
AP chest x-ray HISTORY: Hypertension. COMPARISON: Chest x-ray October 18, 2019. FINDINGS: Heart size stable. Tortuosity/aneurysm of the aortic arch stable. No pneumothorax, pulmonary opacities or pleural effusions. Bones unremarkable. IMPRESSION: No acute process. Stable exam. Electronically signed by: Enoc Goff MD (07/17/2020 1:18 PM) [facility]
[2020-07-17 13:22] LABS: BASO # 0.1 x10^3/uL (0.0-0.2); BASO % 1 % (0-3); EOS # 0.1 x10^3/uL (0.0-0.7); EOS % 2 % (0-3); HEMATOCRIT 46.1 % (36.0-47.0); HEMOGLOBIN 15.6 g/dL (12.0-15.5); LYMPH # 1.1 x10^3/uL (1.0-4.8); LYMPH % 14 % (24-48); MEAN CORPUSCULAR HEMOGLOBIN 28 pg (25-35); MEAN CORPUSCULAR HGB CONC 34 g/dL (31-37); MEAN CORPUSCULAR VOLUME 83 fL (79-100); MONO # 0.5 x10^3/uL (0.0-1.1); MONO % 7 % (0-9); NEUT # 5.8 x10^3/uL (1.8-7.7); NEUT % 76 % (31-73); PLATELET COUNT 338 x10^3/uL (140-400); RED BLOOD COUNT 5.58 x10^6/uL (3.50-5.40); RED CELL DISTRIBUTION WIDTH 15.2 % (11.5-14.5); WHITE BLOOD COUNT 7.7 x10^3/uL (4.0-11.0)
[2020-07-17 13:23] LABS: BILIRUBIN,URINE NEGATIVE (NEG); CLARITY,URINE CLEAR; COLOR,URINE YELLOW; NITRITE,URINE NEGATIVE (NEG); PROTEIN,URINE NEGATIVE (NEG-TRACE); UROBILINOGEN,URINE 0.2 mg/dL (0.2 mg/dL)
[2020-07-17 13:31] LABS: AMPHETAMINE/METHAMPHETAMINE NEG (NEG); BARBITURATES NEG (NEG); BENZODIAZEPINES NEG (NEG); CANNABINOIDS NEG (NEG); COCAINE NEG (NEG); METHADONE NEG (NEG); OPIATES NEG (NEG); PHENCYCLIDINE NEG (NEG)
[2020-07-17 13:43] LABS: CALCIUM 9.1 mg/dL (8.5-10.1); CREATININE 0.8 mg/dL (0.6-1.0); GFR 71.5; POTASSIUM 3.7 mmol/L (3.5-5.1)
[2020-07-17 13:44] LABS: BACTERIA,URINE FEW /HPF (0-FEW); RBC,URINE 0 /HPF (0-2); SQUAMOUS EPITHELIAL CELL,UR OCC /LPF; WBC,URINE 0 /HPF (0-4)
[2020-07-17 13:48] LABS: ALBUMIN 3.6 g/dL (3.4-5.0); ALBUMIN/GLOBULIN RATIO 0.9 (1.0-1.7); TOTAL BILIRUBIN 0.5 mg/dL (0.2-1.0); TOTAL PROTEIN 7.7 g/dL (6.4-8.2)
[2020-07-17 15:03] VITALS: BP 141/86
--- NOTE | 2020-07-21 03:34 | EKG ---
[facility] [address] [place] [address] Test Date: 2020-07-17 Test Time: 12:40:07 Pat Name: CLEMENT BURNS Department: Room: Gender: F Principal Account Clerk: : [id number] Requested By: CHELSI VELAZQUEZ Order Number: [id number] Reading MD: Ulisses Laughlin Measurements Intervals Mart Rate: 78 P: 78 MN: 168 QRS: -12 QRSD: 82 T: 35 QT: 370 QTc: 425 Interpretive Statements SINUS RHYTHM LEFT ATRIAL ABNORMALITY LEFTWARD AXIS ABNORMAL ECG Electronically Signed On 07-22-2020 12:38:57 CDT by Ulisses Laughlin
== END 2020-07-17 15:39 | disposition home or self-care (01) ==
LOC: ER 11:51
DX: I10 Essential (primary) hypertension (principal); E03.9 Hypothyroidism, unspecified; Z87.891 Personal history of nicotine dependence; Z88.7 Allergy status to serum and vaccine
CPT/HCPCS: 36415; 71045; 80053; 80307; 81001; 83735; 83880; 84443; 84484; 85025; 93005; 99285

== ENCOUNTER 2021-01-17 11:28 | Emergency (ER) | payer BC ==
[~2021-01-17] VITALS: Ht 144.8 cm; Wt 65.4 kg
[~2021-01-17 11:28] MED LIST changes: +LISI10TA16 PO; -LISI10TA2 PO
[2021-01-17 12:15] LABS: BASO # 0.1 x10^3/uL (0.0-0.2); BASO % 1 % (0-3); EOS % 0 % (0-3); HEMATOCRIT 50.1 % (36.0-47.0); HEMOGLOBIN 17.2 g/dL (12.0-15.5); LYMPH # 0.8 x10^3/uL (1.0-4.8); LYMPH % 5 % (24-48); MEAN CORPUSCULAR HEMOGLOBIN 29 pg (25-35); MEAN CORPUSCULAR HGB CONC 34 g/dL (31-37); MEAN CORPUSCULAR VOLUME 85 fL (79-100); MONO # 0.7 x10^3/uL (0.0-1.1); MONO % 4 % (0-9); NEUT # 14.4 x10^3/uL (1.8-7.7); NEUT % 90 % (31-73); PLATELET COUNT 323 x10^3/uL (140-400); RED BLOOD COUNT 5.89 x10^6/uL (3.50-5.40); RED CELL DISTRIBUTION WIDTH 14.8 % (11.5-14.5); WHITE BLOOD COUNT 16.1 x10^3/uL (4.0-11.0)
[2021-01-17] MEDS ORDERED: IV NORMAL SALINE 1000ML BAG 1,000 ML IV SCH (12:15)
[2021-01-17] MEDS ORDERED: MORPHINE SULFATE 4 MG/ML VIAL. IV ONE (12:15)
[2021-01-17] MEDS ORDERED: ONDANSETRON PF 4 MG/2 ML VIAL. IVP ONE (12:15)
[2021-01-17 12:20] LABS: BILIRUBIN,URINE NEGATIVE (NEG); CLARITY,URINE CLEAR; COLOR,URINE YELLOW; NITRITE,URINE NEGATIVE (NEG); PROTEIN,URINE 30 mg/dL (NEG-TRACE); UROBILINOGEN,URINE 0.2 mg/dL (0.2 mg/dL)
[2021-01-17 12:25] LABS: CALCIUM 8.8 mg/dL (8.5-10.1); CREATININE 0.8 mg/dL (0.6-1.0); GFR 71.5
[2021-01-17 12:27] LABS: BACTERIA,URINE FEW /HPF (0-FEW); RBC,URINE 0 /HPF (0-2); WBC,URINE RARE /HPF (0-4)
[2021-01-17 12:31] LABS: ALBUMIN 3.8 g/dL (3.4-5.0); ALBUMIN/GLOBULIN RATIO 0.8 (1.0-1.7); TOTAL BILIRUBIN 0.8 mg/dL (0.2-1.0); TOTAL PROTEIN 8.3 g/dL (6.4-8.2)
[2021-01-17 12:43] LABS: % BANDS 2 % (0-9); % LYMPHS 8 % (24-48); % SEGS 90 % (35-66); PLT ESTIMATE ADEQUATE (ADEQUATE)
--- NOTE | 2021-01-17 13:05 | PHYS DOC ---
Past Medical History Past Medical History: Arthritis, Hypertension, Hypothyroid, Other Additional Past Medical Histor: back pain Past Surgical History: No Surgical History, Appendectomy, , Tonsillectomy, Other Additional Past Surgical Histo: Right knee repair-no knee cap, thyroidectomy Smoking Status: Former Smoker Alcohol Use: None Drug Use: None General Adult EDM: Chief Complaint: FLANK PAIN HPI: HPI: Patient is a 65 year old female who presented to ER due to right side abdominal pain that radiated across to her belly into her right groin area started last night. Symptom has become more severe today so she came in for evaluation. Keyon swenson denies any cough or fever. Patient denies any history of kidney stones or gallbladder problem. Patient denies any blood in her urine, denies any urinary frequency or urgency. No Diarrhea. Review of Systems: Review of Systems: Constitutional: Denies fever or chills. [] Eyes: Denies change in visual acuity. [] HENT: Denies nasal congestion or sore throat. [] Respiratory: Denies cough or shortness of breath. [] Cardiovascular: Denies chest pain or edema. [] GI: Positive for right side abdominal pain, no nausea vomiting, no diarrhea : Denies dysuria. [] Musculoskeletal: Denies back pain or joint pain. [] Integument: Denies rash. [] Neurologic: Denies headache, focal weakness or sensory changes. [] Endocrine: Denies polyuria or polydipsia. [] Lymphatic: Denies swollen glands. [] Psychiatric: Denies depression or anxiety. [] Heart Score: C/O Chest Pain: N/A Risk Factors: Risk Factors: DM, Current or recent (<one month) smoker, HTN, HLP, family history of CAD, obesity. Risk Scores: Score 0 - 3: 2.5% MACE over next 6 weeks - Discharge Home Score 4 - 6: 20.3% MACE over next 6 weeks - Admit for Clinical Observation Score 7 - 10: 72.7% MACE over next 6 weeks - Early Invasive Strategies Current Medications: Current Medications Medications (Trade) Dose Ordered Sig/David Start Time Stop Time Status Last Admin Dose Admin Morphine Sulfate (Morphine Sulfate) 4 mg 1X ONCE 01/17/21 12:15 01/17/21 12:16 DC 01/17/21 12:14 4 MG Ondansetron HCl (Zofran) 4 mg 1X ONCE 01/17/21 12:15 01/17/21 12:16 DC 01/17/21 12:13 4 MG Sodium Chloride 1,000 ml @ 1,000 mls/hr Q1H 01/17/21 12:15 01/17/21 13:14 01/17/21 12:12 1,000 MLS/HR Allergies: Allergies: Allergies Coded Allergies Type Severity Reaction Last Updated Verified Tetanus Vaccines and Toxoid Allergy Intermediate 08/23/15 Yes Physical Exam: PE: Constitutional: Well developed, well nourished, no acute distress, non-toxic appearance. [] HENT: Normocephalic, atraumatic, bilateral external ears normal, oropharynx moist, no oral exudates, nose normal. [] Eyes: PERRLA, EOMI, conjunctiva normal, no discharge. [] Neck: Normal range of motion, no tenderness, supple, no stridor. [] Cardiovascular:Heart rate regular rhythm, no murmur [] Lungs & Thorax: Bilateral breath sounds clear to auscultation [] Abdomen: Bowel sounds normal, soft, lower abdominal area tenderness to palpation, no rebound, no masses, no pulsatile masses. [] Skin: Warm, dry, no erythema, no rash. [] Back: No tenderness, Right CVA tenderness. [] Extremities: No tenderness, no cyanosis, no clubbing, ROM intact, no edema. [] Neurologic: Alert and oriented X 3, normal motor function, normal sensory function, no focal deficits noted. [] Psychologic: Affect normal, judgement normal, mood normal. [] Current Patient Data: Labs: Laboratory Tests Test 01/17/21 12:00 01/17/21 12:03 Urine Collection Type Unknown Urine Color Yellow Urine Clarity Clear Urine pH 7.0 (<5.0-8.0) Urine Specific [place] 1.010 (1.000-1.030) Urine Protein 30 mg/dL (NEG-TRACE) Urine Glucose (UA) Negative mg/dL (NEG) Urine Ketones (Stick) Negative mg/dL (NEG) Urine Blood Negative (NEG) Urine Nitrite Negative (NEG) Urine Bilirubin Negative (NEG) Urine Urobilinogen Dipstick 0.2 mg/dL (0.2 mg/dL) Urine Leukocyte Esterase Negative (NEG) Urine RBC 0 /HPF (0-2) Urine WBC Rare /HPF (0-4) Urine Squamous Epithelial Cells Few /LPF Urine Bacteria Few /HPF (0-FEW) White Blood Count 16.1 x10^3/uL (4.0-11.0) H Red Blood Count 5.89 x10^6/uL (3.50-5.40) H Hemoglobin 17.2 g/dL (12.0-15.5) H Hematocrit 50.1 % (36.0-47.0) H Mean Corpuscular Volume 85 fL (79-100) Mean Corpuscular Hemoglobin 29 pg (25-35) Mean Corpuscular Hemoglobin Concent 34 g/dL (31-37) Red Cell Distribution Width 14.8 % (11.5-14.5) H Platelet Count 323 x10^3/uL (140-400) Neutrophils (%) (Auto) 90 % (31-73) H Lymphocytes (%) (Auto) 5 % (24-48) L Monocytes (%) (Auto) 4 % (0-9) Eosinophils (%) (Auto) 0 % (0-3) Basophils (%) (Auto) 1 % (0-3) Neutrophils # (Auto) 14.4 x10^3/uL (1.8-7.7) H Lymphocytes # (Auto) 0.8 x10^3/uL (1.0-4.8) L Monocytes # (Auto) 0.7 x10^3/uL (0.0-1.1) Eosinophils # (Auto) 0.0 x10^3/uL (0.0-0.7) Basophils # (Auto) 0.1 x10^3/uL (0.0-0.2) Segmented Neutrophils % 90 % (35-66) H Band Neutrophils % 2 % (0-9) Lymphocytes % 8 % (24-48) L Platelet Estimate Adequate (ADEQUATE) Sodium Level 132 mmol/L (136-145) L Potassium Level 4.0 mmol/L (3.5-5.1) Chloride Level 94 mmol/L (98-107) L Carbon Dioxide Level 31 mmol/L (21-32) Anion Gap 7 (6-14) Blood Urea Nitrogen 9 mg/dL (7-20) Creatinine 0.8 mg/dL (0.6-1.0) Estimated GFR (Cockcroft-Gault) 71.5 BUN/Creatinine Ratio 11 (6-20) Glucose Level 104 mg/dL (70-99) H Calcium Level 8.8 mg/dL (8.5-10.1) Total Bilirubin 0.8 mg/dL (0.2-1.0) Aspartate Amino Transferase (AST) 16 U/L (15-37) Alanine Aminotransferase (ALT) 19 U/L (14-59) Alkaline Phosphatase 119 U/L (46-116) H Total Protein 8.3 g/dL (6.4-8.2) H Albumin 3.8 g/dL (3.4-5.0) Albumin/Globulin Ratio 0.8 (1.0-1.7) L Lipase 98 U/L (73-393) Laboratory Tests 01/17/21 12:03 Laboratory Tests 01/17/21 12:03 Vital Signs: Vital Signs Date Time Temp Pulse Resp B/P (MAP) Pulse Ox O2 Delivery O2 Flow Rate FiO2 01/17/21 12:14 20 98 01/17/21 11:53 98.1 102 182/120 (140) Room Air 98.1 EKG: EKG: [] Radiology/Procedures: Radiology/Procedures: [][facility] [address] [place], [place] [id number] IMAGING REPORT Signed PATIENT: CLEMENT BURNS ACCOUNT: [id number] : 1955 LOCATION: ER AGE: 65 SEX: F EXAM STATUS: PRE ER ORD. PHYSICIAN: BRADEN GLEZ DO REASON: right flank pain PROCEDURE: CT ABDOMEN PELVIS WO CONTRAST Exam Date: 01/17/2021 12:[address] ABDOMEN+PELVIS WO Indication: Reason: right flank pain / Spl. Instructions: / History: TECHNIQUE: CT examination of the abdomen and pelvis was performed without oral or intravenous contrast. One or more of the following dose reduction techniques were utilized: *Automated exposure control (AEC) *Adjustment of mA and/or kV according to patient size *Use of iterative reconstruction technique *CT scan done according to ALARA, or ALARA/IMAGE GENTLY FINDINGS: The visualized lung bases are clear. The heart is enlarged with coronary artery calcifications. There is likely a small gallstone. The liver, gallbladder, spleen, pancreas, and adrenal glands are otherwise normal. There is a 3 mm calcification in the left kidney which may represent a nonobstructing calculus. The kidneys are otherwise normal bilaterally. No hydronephrosis or hydroureter is seen. No right urinary tract calculi are seen. Urinary bladder is normal in appearance. Diverticulosis coli is noted. Inflammatory changes are seen involving the distal sigmoid colon consistent with diverticulitis. No abscess or free air. Postoperative changes at the cecum are consistent with prior appendectomy. Moderate atherosclerotic calcifications are seen. No lymphadenopathy or ascites is seen. Degenerative changes are seen in the spine. IMPRESSION: Acute diverticulitis. No abscess or free air. 3 mm nonobstructing left renal calculus. No hydronephrosis. No right urinary tract calculi. Electronically signed by: Chema Macias MD (01/17/2021 1:07 PM) [facility] DICTATED and SIGNED BY: CHEMA MACIAS MD DATE: 01/17/21 [id number] 0 Course & Med Decision Making: Course & Med Decision Making Pertinent Labs and Imaging studies reviewed. (See chart for details) Patient is a 65-year-old female who presented to ER due to lower abdominal pain, CT scan her abdomen pelvic show evidence of diverticulitis. There is no free air or abscess formation. Patient denies any nausea vomiting. Patient feels much better, she did not want to stay in the hospital. Patient would like to go home and take antibiotic, then she need to follow-up with her GI specialist. Isaac Disclaimer: Isaac Disclaimer: This electronic medical record was generated, in whole or in part, using a voice recognition dictation system. Departure Departure Impression: Primary Impression: Diverticulitis Disposition: 01 DC HOME SELF CARE/HOMELESS Condition: STABLE Referrals: KAY MENDOZA (PCP) BORIS SWANSON MD Please call this GI specialist for outpatient follow up next week. Patient Instructions: Diverticulitis Additional Instructions: Thank you for visiting our Emergency Department. We appreciate you trusting us with your care. If any additional problems come up don't hesitate to return to visit us. Please follow up with your primary care provider so they can plan additional care if needed and know about the problem that you had. If symptoms worsen come back to the Emergency Department. Any concerning symptoms that start such as chest pain, shortness of air, weakness or numbness on one side of the body, running high fevers or any other concerning symptoms return to the ER. Scripts Hydrocodone Bit/Acetaminophen (HYDROCODONE-APAP 5-325 ) 1 Tab Tablet 1 TAB PO PRN Q6HRS PRN for PAIN, #12 TAB 0 Refills Prov: BRADEN GLEZ DO 01/17/21 Metronidazole (FLAGYL) 500 Mg Tablet 500 MG PO TID for 10 Days, #30 TAB Prov: BRADEN GLEZ DO 01/17/21 Amoxicillin/Potassium Clav (AUGMENTIN 875-125 TABLET) 1 Each Tablet 1 TAB PO BID for 10 Days, #20 TAB 0 Refills Prov: BRADEN GLEZ DO 01/17/21 BRADEN GLEZ DO Jan 17, 2021 13:05
--- NOTE | 2021-01-17 13:09 | RAD ---
Exam Date: 01/17/2021 12:[address] ABDOMEN+PELVIS WO Indication: Reason: right flank pain / Spl. Instructions: / History: TECHNIQUE: CT examination of the abdomen and pelvis was performed without oral or intravenous contra st. One or more of the following dose reduction techniques were utilized: *Automated exposure control (AEC) *Adjustment of mA and/or kV according to patient size *Use of iterative reconstruction technique *CT scan done according to ALARA, or ALARA/IMAGE GENTLY FINDINGS: The visualized lung bases are clear. The heart is enlarged with coronary artery calcifications. There is likely a small gallstone. The liver, gallbladder, spleen, pancreas, and adrenal glands are otherwise normal. There is a 3 mm calcification in the left kidney which may represent a nonobstructing calculus. The kidneys are otherwise normal bilaterally. No hydronephrosis or hydroureter is seen. No right ur inary tract calculi are seen. Urinary bladder is normal in appearance. Diverticulosis coli is noted. Inflammatory changes are seen involving the distal sigmoid colon consis tent with diverticulitis. No abscess or free air. Postoperative changes at the cecum are consistent w ith prior appendectomy. Moderate atherosclerotic calcifications are seen. No lymphadenopathy or ascites is seen. Degenerative changes are seen in the spine. IMPRESSION: Acute diverticulitis. No abscess or free air. 3 mm nonobstructing left renal calculus. No hydronephrosis. No right urinary tract calculi. Electronically signed by: Nico Macias MD (01/17/2021 1:07 PM) [facility]
[2021-01-17] MEDS ORDERED: PIPERACILLIN/TAZOBACTAM 3.375 GM in IV NORMAL SALINE 50ML 50 ML IV ONE (13:15)
[2021-01-17 14:24] VITALS: BP 193/91
[2021-01-17] MEDS ORDERED: fentaNYL PF VIAL 100 MCG/2 ML VIAL IVP ONE (14:45)
[2021-01-17] MEDS ORDERED: AMOX1TAB61 PO (15:07)
[2021-01-17] MEDS ORDERED: HYDR-2761 PO (15:07)
[2021-01-17] MEDS ORDERED: METR500T PO (15:07)
== END 2021-01-17 16:18 | disposition home or self-care (01) ==
LOC: ER 11:28
DX: K57.32 Diverticulitis of large intestine without perforation or abscess without bleeding (principal); R10.31 Right lower quadrant pain; M19.90 Unspecified osteoarthritis, unspecified site; I10 Essential (primary) hypertension; E03.9 Hypothyroidism, unspecified; Z87.891 Personal history of nicotine dependence; Z90.89 Acquired absence of other organs; Z98.890 Other specified postprocedural states; Z88.7 Allergy status to serum and vaccine
CPT/HCPCS: 36415; 74176; 80053; 81001; 83690; 85007; 85025; 96361; 96365; 96367; 96375; 99285; J2270; J2405; J2543; J3490; J7030

== ENCOUNTER → 2021-02-23 | Outpatient (CLI) | payer BC ==
[~2021-02-23] MED LIST changes: +AMOX1TAB61 PO; +CONTRAST GIVEN. MC PRN; +HYDR-2761 PO; +IOHEXOL 350 MG/ML 100 ML VIAL. IV ONE; +METR500T PO
--- NOTE | 2021-02-24 15:11 | RAD ---
EXAM: CT angiogram chest aortic protocol CLINICAL HISTORY: AORTIC ANEURYSM WITHOUT RUPTURE, HYPERTENSION UNCONTROLLED / Spl. Instructions: IV OMNI 350 90 MLS / History: . COMPARISON: 08/23/2015, TECHNIQUE: CT of the chest following the administration of intravenous contra st during the aortic arterial phase. Axial, coronal and sagittal reformatted images were generated in cluding MIP images. ---PQRS compliance statement - One or more of the following individualized dose reduction techniques were utilized for this study: 1. Automated exposure control 2. Adjustment of the mA and/or kV according to patient size 3. Use of iterative reconstruction technique--- FINDINGS: CHEST: Heart is not enlarged. No pericardial effusion. No pleural effusion or pneumothorax. No mediastinal or hilar lymphadenopathy. No axillary lymphadenopathy. 3 mm right upper lobe lung nodule is seen. 3 mm left lower lobe lung nodule (series 3 image 59) The ascending aorta measures 4.8 cm previously approximately 4.5 cm on 08/23/2015 and 03/22/2016. Inter mittent atherosclerotic calcifications of aorta. The remainder of the thoracic aorta is grossly linnea l in size and stable. Aortic arch measures 2.3 cm, descending aorta at the level of the left pulmonar y artery measures 2.3 cm, aorta at the diaphragmatic hiatus measures approximately 2.2 cm. Visualized Upper abdomen: Hepatic hypoattenuation likely fatty liver. Hypodense hepatic lesions with peripheral nodular enhancement in the left right hepatic lobes likely hemangioma. Intermittent renal cortical scarring left kidney. Intermittent atherosclerotic calcifications of the abdominal aorta wi th mild atheromatous plaque. Bones: Subacute fractures of the anterolateral left fifth-seventh ribs. Multilevel degenerative koch es of spine are seen. IMPRESSION: Ascending aortic aneurysm, mildly progressed compared to 08/23/2015 measuring 4.8 cm on today's examin ation and previously 4.5 cm when remeasured in a similar fashion. Electronically signed by: Scar Ramirez MD (02/24/2021 3:09 PM) [facility]
== END ==
LOC: CT 16:00
PROVIDERS: ATTEND Physician Assistant
DX: I71.4 Abdominal aortic aneurysm, without rupture (principal); I10 Essential (primary) hypertension; I70.0 Atherosclerosis of aorta; R91.1 Solitary pulmonary nodule
CPT/HCPCS: 71275; Q9967

== ENCOUNTER → 2021-03-01 | Outpatient (CLI) | payer BC ==
[~2021-03-01] MED LIST changes: +AMLO-186 PO; -CONTRAST GIVEN. MC PRN; -IOHEXOL 350 MG/ML 100 ML VIAL. IV ONE; +OLME40TA12 PO
== END ==
LOC: LAB 16:14
PROVIDERS: ATTEND Internal Medicine Gastroenterology
DX: Z01.812 Encounter for preprocedural laboratory examination (principal); K57.32 Diverticulitis of large intestine without perforation or abscess without bleeding; Z20.822 Contact with and (suspected) exposure to COVID-19
CPT/HCPCS: U0003; U0005

== ENCOUNTER → 2021-03-02 | Day surgery (SDC) | payer BC ==
[~2021-03-02] MED LIST changes: +IV RINGERS,LACTATED 1000ML 1,000 ML IV SCH; +LIDOCAINE 2% PF 5 ML VIAL. ONE; +PROPOFOL 10 MG/ML (20ML) VIAL. IV ONE
[2021-03-02 15:05] VITALS: BP 154/88
== END | disposition home or self-care (01) ==
LOC: ENDOS 13:01
PROVIDERS: ATTEND Internal Medicine Gastroenterology
DX: K57.32 Diverticulitis of large intestine without perforation or abscess without bleeding (principal); K57.30 Diverticulosis of large intestine without perforation or abscess without bleeding; K64.0 First degree hemorrhoids; K63.89 Other specified diseases of intestine; I10 Essential (primary) hypertension; M19.90 Unspecified osteoarthritis, unspecified site; E03.9 Hypothyroidism, unspecified; Z87.891 Personal history of nicotine dependence; Z79.899 Other long term (current) drug therapy; Z98.890 Other specified postprocedural states; Z82.49 Family history of ischemic heart disease and other diseases of the circulatory system; Z88.1 Allergy status to other antibiotic agents
CPT/HCPCS: 45378; J2704

== ENCOUNTER → 2021-10-13 | Outpatient (CLI) | payer BC ==
[2021-03-02 15:05] VITALS: BP 154/88
[~2021-10-13] MED LIST changes: -IV RINGERS,LACTATED 1000ML 1,000 ML IV SCH; -LIDOCAINE 2% PF 5 ML VIAL. ONE; -LISI1TAB20 PO; +LISI1TAB39 PO; -PROPOFOL 10 MG/ML (20ML) VIAL. IV ONE
--- NOTE | 2021-10-13 17:48 | CARD ---
MR#: [id number] Date of Study: 10/13/2021 Ordering Physician: YUNIEL HENDRICKS, Referring Physician: YUNIEL HENDRICKS Tech: Candie Yusuf [facility] APPROVED REPORT EXAM: Two-dimensional and M-mode echocardiogram with Doppler and color Doppler. Other Information Quality : Technically LimitedHR: 62bpm Rhythm : NSR INDICATION Dyspnea RISK FACTORS Hypertension 2D DIMENSIONS Left Atrium(2D)3.0 (1.6-4.0cm)IVSd1.4 (0.7-1.1cm) Aortic Root(2D)2.8 (2.0-3.7cm)LVDd3.7 (3.9-5.9cm) LVOT Diameter2.2 (1.8-2.4cm)PWd1.0 (0.7-1.1cm) LVDs1.6 (2.5-4.0cm)FS (%) 56.1 % SV49.9 ml Aortic Valve AoV Peak Stephen.138.6cm/sAoV VTI26.1cm AO Peak GR.7.7mmHgLVOT Peak Stephen.116.3cm/s AO Mean GR.3mmHgAVA (VMAX)3.20cm2 Mitral Valve MV E Iklwploo53.7cm/sMV DECEL [id number] MV A Ffjrxyjw04.4cm/sE/A Ratio0.9 LEFT VENTRICLE The left ventricle is normal size. There is normal left ventricular wall thickness. The left ventricu lar systolic function is normal and the ejection fraction is within normal range. LV ejection fractio n of 50 to 55%. There is normal LV segmental wall motion. The left ventricular diastolic function and filling is normal for age. RIGHT VENTRICLE The right ventricle is normal size. There is normal right ventricular wall thickness. The right ventr icular systolic function is normal. ATRIA The left atrium size is normal. The right atrium size is normal. The interatrial septum is intact wit h no evidence for an atrial septal defect or patent foramen ovale as noted on 2-D or Doppler imaging. AORTIC VALVE The aortic valve is normal in structure and function. Doppler and Color Flow revealed mild aortic reg urgitation. There is no significant aortic valvular stenosis. MITRAL VALVE The mitral valve is normal in structure and function. There is no evidence of mitral valve prolapse. There is no mitral valve stenosis. Doppler and Color-flow revealed trace mitral regurgitation. TRICUSPID VALVE The tricuspid valve is normal in structure and function. Doppler and Color Flow revealed no tricuspid valve regurgitation noted. PULMONIC VALVE The pulmonary valve is normal in structure and function. Doppler and Color Flow revealed no pulmonic valvular regurgitation. GREAT VESSELS The aortic root is mildly enlarged. The ascending aorta is moderately dilated. The IVC is normal in s ize and collapses >50% with inspiration. PERICARDIAL EFFUSION There is no evidence of significant pericardial effusion. Critical Notification Critical Value: No <Conclusion> The left ventricle is normal size. The left ventricular systolic function is normal and the ejection fraction is within normal range. LV ejection fraction of 50 to 55%. There is normal LV segmental wall motion. Doppler and Color Flow revealed mild aortic regurgitation. There is no significant aortic valvular stenosis. Doppler and Color-flow revealed trace mitral regurgitation. Doppler and Color Flow revealed no tricuspid valve regurgitation noted. The ascending aorta is moderately dilated. Signed by : Lenny Schwarz MD Electronically Approved : 10/13/2021 17:48:03
== END ==
LOC: ECHO 12:36
PROVIDERS: ATTEND Internal Medicine Cardiovascular Disease
DX: I35.1 Nonrheumatic aortic (valve) insufficiency (principal); I77.819 Aortic ectasia, unspecified site
CPT/HCPCS: 93306